=== PATIENT | male | born 1995 | race American Indian/Alaskan Native ===

== ENCOUNTER 2016-09-13 19:47 | Emergency (ER) | payer OTHER ==
[2016-09-13 19:47] VITALS: BMI 19.5
[2016-09-13] MEDS ORDERED: Bacitracin 500 Units/gm Oint Foilpak UD TOP ONE (20:53)
[2016-09-13] MEDS ORDERED: Bacitracin 500 Units/gm Oint Foilpak UD ONE (21:03)
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
[2016-09-13] MEDS ORDERED: Epinephrine /Lidocaine HCL 1:100,000/2% 30 ml INFIL ONE (21:43)
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
[2016-09-14 00:12] VITALS: BP 137/73; PULSE 77; RESP 18; TEMP 98.5; O2SAT 98
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
--- NOTE | 2016-09-16 07:55 | CARD ---
APPROVED REPORT EKG Measurement Heart [id number] HI 128P9 [id number] <Conclusion> Normal sinus rhythm Normal ECG
== END 2016-09-14 00:12 | disposition home or self-care (01) ==
LOC: C.ER 19:47
DX: S01.81XA Laceration without foreign body of other part of head, initial encounter (principal); V18.4XXA Pedal cycle driver injured in noncollision transport accident in traffic accident, initial encounter; Y92.89 Other specified places as the place of occurrence of the external cause

== ENCOUNTER 2016-10-20 17:34 | Observation (INO) | payer OTHER ==
[2016-10-20 17:34] VITALS: BMI 19.5
[2016-10-20] MEDS ORDERED: Sodium Chloride 0.9% 1,000 ML IV ONE (17:54)
[2016-10-20] MEDS ORDERED: Sodium Chloride 0.9% 1,000 ML ONE (18:08)
[2016-10-20 18:12] LABS: BASO # 0.1 K/uL (0.0-0.2); BASO % 1.1 % (0.0-2.0); EOS # 0.1 K/uL (0.0-0.7); EOS % 0.5 % (0.0-4.0); HEMOGLOBIN 17.2 g/dL (12.0-18.0); LYMPH # 1.8 K/uL (1.0-4.3); LYMPH % 16.9 % (20.0-40.0); MEAN CELL VOLUME 87.4 fL (80.0-94.0); MEAN CORPUSCULAR HEMOGLOBIN 29.6 pg (27.0-31.0); MEAN CORPUSCULAR HGB CONC 33.9 g/dL (33.0-37.0); MONO # 0.5 K/uL (0.0-0.8); MONO % 5.1 % (0.0-10.0); NEUT # 8.1 K/uL (1.8-7.0); NEUT % 76.4 % (50.0-75.0); NRBC % 0.1 % (0.0-2.0); RBC 5.82 Mil/uL (4.40-5.90); RED CELL DISTRIBUTION WIDTH 13.1 % (11.5-14.5); WHITE BLOOD COUNT 10.5 K/uL (4.8-10.8)
[2016-10-20 18:27] LABS: URINE AMORPHOUS SEDIMENT RARE /ul (<OCC); URINE BACTERIA OCC (<OCC); URINE BILIRUBIN NEGATIVE (NEGATIVE); URINE BLOOD NEGATIVE (NEGATIVE); URINE CLARITY Hazy (Clear); URINE COLOR Yellow (YELLOW); URINE GLUCOSE (UA) NORMAL (Normal); URINE LEUKOCYTE ESTERASE NEG Leu/uL (Negative); URINE NITRATE NEGATIVE (NEGATIVE); URINE PROTEIN 1+ mg/dL (NEGATIVE); URINE UROBILINOGEN NORMAL mg/dL (0.2-1.0)
--- NOTE | 2016-10-20 18:34 | C.PDOC ---
History Of Present Illness 21 yr old male with history of intractable vomiting, presents to the ER with complaints of nausea and vomiting for the past 2 days. Patient reports he unable to tolerate any PO intake. Denies travel, fever, chest pain, SOB, abdominal pain, weakness or numbness. Time Seen by Provider: 10/20/16 17:50 Chief Complaint (Nursing): Chest Pain History Per: Patient History/Exam Limitations: no limitations Onset/Duration Of Symptoms: Days (2) Current Symptoms Are (Timing): Still Present Past Medical History Reviewed: Historical Data, Nursing Documentation, Vital Signs Vital Signs: Last Vital Signs Temp 98.4 F 10/20/16 17:36 Pulse 62 10/20/16 17:36 Resp 16 10/20/16 17:36 BP 156/100 H 10/20/16 17:36 Pulse Ox 98 10/20/16 18:52 - Medical History PMH: Gastritis, GERD - [facility] Procedures EXCISION OF LEFT LARGE INTESTINE, ENDO, DIAGN (02/27/16) Family History: States: No Known Family Hx - Social History Hx Tobacco Use: Yes (black & milds) Hx Alcohol Use: No Hx Substance Use: Yes - Immunization History Hx Tetanus Toxoid Vaccination: No Hx Influenza Vaccination: No Hx Pneumococcal Vaccination: No Review Of Systems Except As Marked, All Systems Reviewed And Found Negative. Constitutional: Negative for: Fever Cardiovascular: Negative for: Chest Pain Respiratory: Negative for: Shortness of Breath Gastrointestinal: Positive for: Nausea, Vomiting. Negative for: Abdominal Pain Neurological: Negative for: Weakness, Numbness Physical Exam - Physical Exam Appears: Non-toxic, No Acute Distress, Other ((+) Fraile. Thin looking. ) Skin: Warm, Dry Head: Atraumatic, Normacephalic Chest: Symmetrical, No Tenderness Cardiovascular: Rhythm Regular, No Murmur Respiratory: Normal Breath Sounds, No Rales, No Rhonchi, No Stridor, No Wheezing Gastrointestinal/Abdominal: Soft, Tenderness (Diffuse tenderness), No Guarding, No Rebound Extremity: Normal ROM, No Swelling Neurological/Psych: Oriented x3, Normal Speech, Normal Motor ED Course And Treatment - Laboratory Results Result Diagrams: 10/20/16 18:05 10/20/16 18:29 Lab Interpretation: Abnormal (mild hypokalemia, THC +) ECG: Interpreted By Me ECG Rhythm: Sinus Rhythm ECG Interpretation: Normal Rate From EC O2 Sat by Pulse Oximetry: 98 Pulse Ox Interpretation: Normal - Radiology CXR: Interpreted by Me CXR Interpretation: Yes: No Acute Disease - Other Rad X-Ray - Obstructive Series X-Ray: Viewed By Me (normal stool/gas pattern) Reevaluation Time: 18:51 Reassessment Condition: Improved - Physician Consult Information Outcome Of Conversation: 1849: d/w Dr. Wheat- PMD- ok to med/surg obs. Medical Decision Making Medical Decision Making: PLAN: * X-Ray - Obstructive Series * Alcohol Serum * Drug Screen * Troponin * CBC * CMP * Urinalysis * Pepcid IVP * Toradol IVP * Zofran IVP * Sodium Chloride IV * 1899: recurrent intractable vomiting of ? etiology Disposition Doctor Will See Patient In The: Hospital Counseled Patient/Family Regarding: Studies Performed, Diagnosis - Disposition Disposition: HOSPITALIZED Disposition Time: 18:52 Condition: GOOD - Clinical Impression Clinical Impression: Intractable vomiting - Scribe Statement The provider has reviewed the documentation as recorded by the Ariel Lobato Provider Attestation: All medical record entries made by the Ariel were at my direction and personally dictated by me. I have reviewed the chart and agree that the record accurately reflects my personal performance of the history, physical exam, medical decision making, and the department course for this patient. I have also personally directed, reviewed, and agree with the discharge instructions and disposition.
[2016-10-20 18:39] LABS: ALBUMIN 4.5 g/dL (3.5-5.0)
[2016-10-20 18:42] LABS: ALB/GLOB RATIO 1.2 (1.0-2.1); AST/SGOT 20 U/L (17-59); GFR AFRICAN-AMERICAN > 60; GFR NON-AFRICAN AMERICAN > 60
[2016-10-20 18:43] LABS: ALT/SGPT 23 U/L (21-72); BLOOD UREA NITROGEN 11 mg/dL (9-20); CALCIUM 9.7 mg/dl (8.6-10.4); LIPASE 60 U/L (23-300)
[2016-10-20 18:47] LABS: BARBITURATES, UR NEGATIVE (NEGATIVE); BENZODIAZEPINES, UR NEGATIVE (NEGATIVE)
[2016-10-20] MEDS ORDERED: Potassium Chloride 10 mEq ER Tab PO STA (18:49)
[2016-10-20] MEDS ORDERED: Morphine 4 MG/ML VIAL IV STA (18:49)
[2016-10-20 18:51] LABS: OPIATES, UR NEGATIVE (NEGATIVE); PHENCYCLIDINE, UR NEGATIVE (NEGATIVE)
[2016-10-20] MEDS ORDERED: Morphine 4 MG/ML VIAL ONE (19:01)
[2016-10-20] MEDS ORDERED: Potassium Chloride 20 mEq ER Tab PO ONE (19:01)
[2016-10-20] MEDS ORDERED: Dextrose 5%/0.9% NS 1,000 ML IV ONE (19:17)
[2016-10-20] MEDS: Dextrose 5%/0.9% NS 1,000 ML IV SCH (19:23)
--- NOTE | 2016-10-20 21:53 | CP.PCM.HP ---
History of Present Illness - History of Present Illness History of Present Illness: 21 yr old male with history of intractable vomiting, presents to the ER with complaints of nausea and vomiting for the past 2 days. Patient reports he unable to tolerate any PO intake. Denies travel, fever, chest pain, SOB, abdominal pain, weakness or numbness. Present on Admission - Present on Admission Any Indicators Present on Admission: Yes Past Patient History - Past Medical History & Family History Past Medical History?: No - Past Social History Smoking Status: Light Smoker < 10 Cigarettes Daily - MUSCULOSKELETAL/RHEUMATOLOGICAL Hx Falls: No - GASTROINTESTINAL Hx Gastritis: Yes - PSYCHIATRIC Hx Substance Use: Yes - SURGICAL HISTORY Hx Surgeries: No - ANESTHESIA Hx Anesthesia: No Meds Home Medications: Home Medication List Medication Instructions Recorded Confirmed Type Famotidine [Pepcid] 20 mg PO DAILY #15 tab 10/22/16 Rx Ondansetron [Zofran Odt] 4 mg PO Q6 #10 odt 10/22/16 Rx Allergies/Adverse Reactions: Allergies Allergy/AdvReac Type Severity Reaction Status Date / Time No Known Allergies Allergy Verified 10/20/16 17:39 Results - Vital Signs Recent Vital Signs: Last Vital Signs Temp 98.4 F 10/20/16 20:53 Pulse 54 L 10/20/16 20:53 Resp 20 10/20/16 20:53 BP 135/70 10/20/16 20:53 Pulse Ox 98 10/20/16 20:53 - Labs Result Diagrams: 10/21/16 07:17 10/21/16 07:15
[2016-10-21] MEDS ORDERED: Acetaminophen-Codeine 300/30 mg Tab PO PRN (01:21)
[2016-10-21 07:29] LABS: BASO % 0.4 % (0.0-2.0); EOS # 0.1 K/uL (0.0-0.7); EOS % 1.5 % (0.0-4.0); HEMOGLOBIN 15.4 g/dL (12.0-18.0); LYMPH # 3.2 K/uL (1.0-4.3); LYMPH % 42.8 % (20.0-40.0); MEAN CORPUSCULAR HEMOGLOBIN 29.4 pg (27.0-31.0); MEAN CORPUSCULAR HGB CONC 32.9 g/dL (33.0-37.0); MONO # 0.4 K/uL (0.0-0.8); MONO % 5.3 % (0.0-10.0); NEUT # 3.8 K/uL (1.8-7.0); RBC 5.25 Mil/uL (4.40-5.90); WHITE BLOOD COUNT 7.5 K/uL (4.8-10.8)
[2016-10-21 07:39] LABS: ALBUMIN 3.6 g/dL (3.5-5.0)
[2016-10-21 07:41] LABS: AMYLASE 89 U/L (30-110)
[2016-10-21 07:42] LABS: ALB/GLOB RATIO 1.2 (1.0-2.1); ALT/SGPT 16 U/L (21-72); AST/SGOT 17 U/L (17-59); BLOOD UREA NITROGEN 10 mg/dL (9-20); CALCIUM 9.2 mg/dl (8.6-10.4); GFR AFRICAN-AMERICAN > 60; GFR NON-AFRICAN AMERICAN > 60; LIPASE 70 U/L (23-300)
[2016-10-21 07:44] LABS: MEAN CELL VOLUME 89.4 fL (80.0-94.0)
--- NOTE | 2016-10-21 07:44 | RAD ---
Abdomen four views History: Abdominal pain. Comparison: None available. Findings: Lung acevedo are clear. Heart size within normal limits. Small nodular density in the left infrahilar region may represent vessel on end. Mild fecal retention in the colon. Few mildly distended loops of small bowel in the right lower abdomen. Impression: Nonspecific bowel gas pattern with a few mildly distended loops of small bowel in the right steph abdomen.
[2016-10-21] MEDS ORDERED: Pneumococcal 23-Valent Vaccine IM ONE (10:00)
[2016-10-21] MEDS: Pantoprazole 40 mg EC Tab PO SCH (11:12)
[2016-10-21 11:57] VITALS: O2SAT 100
[2016-10-21] MEDS ORDERED: Aluminum Hydroxide/Magnesium Hydroxide Susp (30 mL) PO PRN (14:42)
[2016-10-21] MEDS: Dextrose 5%/0.9% NS 1,000 ML IV SCH (14:59)
--- NOTE | 2016-10-21 21:29 | CARD ---
APPROVED REPORT EKG Measurement Heart [id number] HI 124P5 [id number] <Conclusion> Normal sinus rhythm with sinus arrhythmia Moderate voltage criteria for LVH, may be normal variant Borderline ECG
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
[2016-10-22 01:28] VITALS: RESP 20; TEMP 98.2
[2016-10-22] MEDS: Dextrose 5%/0.9% NS 1,000 ML IV SCH (06:08)
[2016-10-22 09:18] VITALS: BP 136/77; PULSE 53
[2016-10-22] MEDS: Pantoprazole 40 mg EC Tab PO SCH (09:28)
--- NOTE | 2016-10-22 12:51 | CP.PCM.PN ---
Subjective - Date & Time of Evaluation Date of Evaluation: 10/22/16 Time of Evaluation: 12:49 - Subjective Subjective: 21 yr old male seen and examined today, with history of intractable vomiting, presents to the ER with complaints of nausea and vomiting for the past 2 days. Patient reports he unable to tolerate any PO intake. Xray obstructive series- no obstruction, Pt denies chest pain, SOB, abdominal pain, nasuea, vomiting or diarrhea, tolerating PO, Pt cleared for discharge today as per Dr. barry, Rx for Pepcid and Zofran given, Follow up w/PMD, agree, verbalize understanding. Objective - Vital Signs/Intake and Output Vital Signs (last 24 hours): Temp Pulse Resp BP Pulse Ox 98.2 F 53 L 20 136/77 100 10/22/16 09:17 10/22/16 09:17 10/22/16 09:17 10/22/16 09:17 10/22/16 09:17 Intake and Output: 10/22/16 10/22/16 06:59 18:59 Intake Total 800 Balance 800 - Medications Medications: Current Medications Acetaminophen/Codeine Phosphate (Tylenol/Codeine 300 Mg/30 Mg) 2 ea PO Q4 PRN PRN Reason: Pain, moderate (4-7) Last Admin: 10/21/16 06:34 Dose: 2 ea Al Hydrox/Mg Hydrox/Simethicone (Maalox 30 Ml) 30 ml PO Q8 PRN PRN Reason: Indigestion / Heartburn Last Admin: 10/21/16 15:03 Dose: 30 ml Dextrose/Sodium Chloride (Dextrose 5%/0.9% Ns 1000 Ml) 1,000 mls @ 100 mls/hr IV .Q10H DRU Last Admin: 10/22/16 06:08 Dose: 100 mls/hr Morphine Sulfate (Morphine) 2 mg SC Q6H PRN PRN Reason: pain Last Admin: 10/21/16 18:03 Dose: 2 mg Ondansetron HCl (Zofran Inj) 4 mg IVP Q4 PRN PRN Reason: Nausea/Vomiting Last Admin: 10/21/16 07:39 Dose: 4 mg Pantoprazole Sodium (Protonix Ec Tab) 40 mg PO DAILY DRU Last Admin: 10/22/16 09:28 Dose: 40 mg - Labs Labs: 10/21/16 07:17 07/05/17 07:15
--- NOTE | 2016-10-22 14:58 | CP.PCM.DIS ---
Provider - Provider Date of Admission: 10/20/16 18:50 Attending physician: Real Wheat MD Time Spent in preparation of Discharge (in minutes): 55 Hospital Course - Lab Results Lab Results: Most Recent Lab Values WBC 7.5 K/uL (4.8-10.8) 10/21/16 07: RBC 5.25 Mil/uL (4.40-5.90) 10/21/16 07:17 Hgb 15.4 g/dL (12.0-18.0) 10/21/16 07: Hct 47.0 % (35.0-51.0) 10/21/16 07: MCV 89.4 fL (80.0-94.0) D 10/21/16 07: MCH 29.4 pg (27.0-31.0) 10/21/16 07: MCHC 32.9 g/dL (33.0-37.0) L 10/21/16 07: RDW 13.0 % (11.5-14.5) 10/21/16 07: Plt Count 236 K/uL (130-400) 10/21/16 07:17 MPV 7.0 fL (7.2-11.7) L 10/21/16 07:17 Neut % (Auto) 50.0 % (50.0-75.0) 10/21/16 07: Lymph % (Auto) 42.8 % (20.0-40.0) H 10/21/16 07:17 [place] % (Auto) 5.3 % (0.0-10.0) 10/21/16 07:17 Eos % (Auto) 1.5 % (0.0-4.0) 10/21/16 07:17 Baso % (Auto) 0.4 % (0.0-2.0) 10/21/16 07:17 Neut # 3.8 K/uL (1.8-7.0) 10/21/16 07: Lymph # 3.2 K/uL (1.0-4.3) 10/21/16 07:17 Bates # 0.4 K/uL (0.0-0.8) 10/21/16 07:17 Eos # 0.1 K/uL (0.0-0.7) 10/21/16 07:17 Baso # 0.0 K/uL (0.0-0.2) 10/21/16 07:17 Sodium 143 mmol/L (132-148) 10/21/16 07:15 Potassium 4.1 mmol/L (3.6-5.2) 10/21/16 07:15 Chloride 106 mmol/L (98-107) 10/21/16 07:15 Carbon Dioxide 27 mmol/L (22-30) 10/21/16 07:15 Anion Gap 14 (10-20) 10/21/16 07:15 BUN 10 mg/dL (9-20) 10/21/16 07:15 Creatinine 0.9 MG/DL (0.8-1.5) 10/21/16 07:15 Est GFR ( Amer) > 60 10/21/16 07:15 Est GFR (Non-Af Amer) > 60 10/21/16 07:15 Random Glucose 95 mg/dL (75-110) 10/21/16 07:15 Calcium 9.2 mg/dl (8.6-10.4) 10/21/16 07:15 Total Bilirubin 1.1 mg/dL (0.2-1.3) 10/21/16 07:15 AST 17 U/L (17-59) 10/21/16 07:15 ALT 16 U/L (21-72) L D 10/21/16 07:15 Alkaline Phosphatase 55 U/L (38-126) 10/21/16 07:15 Troponin I < 0.0120 ng/mL (0.00-0.120) 10/20/16 18:29 Total Protein 6.6 g/dL (6.3-8.3) 10/21/16 07:15 Albumin 3.6 g/dL (3.5-5.0) 10/21/16 07:15 Globulin 3.0 gm/dL (2.2-3.9) 10/21/16 07:15 Albumin/Globulin Ratio 1.2 (1.0-2.1) 10/21/16 07:15 Amylase 89 U/L (30-110) 10/21/16 07:15 Lipase 70 U/L (23-300) 10/21/16 07:15 Urine Color Yellow (YELLOW) 10/20/16 18:17 Urine Clarity Hazy (Clear) 10/20/16 18:17 Urine pH 8.0 (5.0-8.0) 10/20/16 18:17 Ur Specific [place] 1.031 (1.003-1.030) H 10/20/16 18:17 Urine Protein 1+ mg/dL (NEGATIVE) H 10/20/16 18:17 Urine Glucose (UA) Normal mg/dL (Normal) 10/20/16 18:17 Urine Ketones 1+ mg/dL (NEGATIVE) H 10/20/16 18:17 Urine Blood Negative (NEGATIVE) 10/20/16 18:17 Urine Nitrate Negative (NEGATIVE) 10/20/16 18:17 Urine Bilirubin Negative (NEGATIVE) 10/20/16 18:17 Urine Urobilinogen Normal mg/dL (0.2-1.0) 10/20/16 18:17 Ur Leukocyte Esterase Neg [place]/uL (Negative) 10/20/16 18:17 Urine WBC (Auto) 3 /hpf (0-5) 10/20/16 18:17 Urine RBC (Auto) 5 /hpf (0-3) H 10/20/16 18:17 Amorphous Sediment Rare /ul (<OCC) H 10/20/16 18:17 Urine Bacteria Occ (<OCC) H 10/20/16 18:17 Urine Opiates Screen Negative (NEGATIVE) 10/20/16 18:17 Urine Methadone Screen Negative (NEGATIVE) 10/20/16 18:17 Ur Barbiturates Screen Negative (NEGATIVE) 10/20/16 18:17 Ur Phencyclidine Scrn Negative (NEGATIVE) 10/20/16 18:17 Ur Amphetamines Screen Negative (NEGATIVE) 10/20/16 18:17 U Benzodiazepines Scrn Negative (NEGATIVE) 10/20/16 18:17 U Oth Cocaine Metabols Negative (NEGATIVE) 10/20/16 18:17 U Cannabinoids Screen Positive (NEGATIVE) 10/20/16 18:17 Alcohol, Quantitative < 10 mg/dl (0-10) 10/20/16 18:29 - Hospital Course Hospital Course: Pt cleared for discharge today , Rx for Pepcid and Zofran given, Follow up w me in 1 week, agree, verbalize understanding. Discharge Exam - Head Exam Head Exam: ATRAUMATIC, NORMAL INSPECTION, NORMOCEPHALIC Discharge Plan - Discharge Medications Prescriptions: Famotidine [Pepcid] 20 mg PO DAILY #15 tab Ondansetron [Zofran Odt] 4 mg PO Q6 #10 odt - Follow Up Plan Condition: GOOD Disposition: HOME/ ROUTINE Instructions: Famotidine (By mouth), Ondansetron (By mouth), Acute Nausea and Vomiting (DC) Additional Instructions: FOLLOW UP WITH DR WHEAT IN 1-2 DAYS CONTINUE MEDICATIONS PER MED REC RETURN TO ED IF ANY WORSENING SYMPTOMS Referrals: Real Wheat MD [Staff Provider] -
== END 2016-10-22 14:34 | disposition home or self-care (01) ==
LOC: C.ER 17:34 → C.9E 18:50 → C.6T 19:38
PROVIDERS: ADMIT Internal Medicine; ATTEND Internal Medicine
DX: G89.29 Other chronic pain (principal); R07.9 Chest pain, unspecified; K21.9 Gastro-esophageal reflux disease without esophagitis; F17.210 Nicotine dependence, cigarettes, uncomplicated; R10.9 Unspecified abdominal pain; Z91.81 History of falling; R11.10 Vomiting, unspecified; F12.10 Cannabis abuse, uncomplicated
CPT/HCPCS: 36415; 74022; 80053; 80320; 80324; 80345; 80346; 80349; 80353; 80358; 80361; 81001; 82150; 83690; 83992; 84484; 85025; 93005; 96360; 96374; 99285; C9113; G0378; J1885; J2270; J2405; J7040; J7042

== ENCOUNTER 2016-10-23 10:10 | Emergency (ER) | payer OTHER ==
[2016-10-23 10:10] VITALS: BMI 19.5
--- NOTE | 2016-10-23 10:46 | C.PDOC ---
History Of Present Illness 21 y/o male presents to ED with c/o epigastric abdominal pain, radiating to the chest, for 4 days. Patient reports he was recently discharged from hospital. States he has been taking prescribed medications without relief, notes he has been unable to tolerate PO, including medications. Patient describes pain as burning, and "shooting". Denies fever, chills, SOB, urinary symptoms, diarrhea. Last BM was today, normal. Time Seen by Provider: 10/23/16 10:30 Chief Complaint (Nursing): Chest Pain History Per: Patient History/Exam Limitations: no limitations Onset/Duration Of Symptoms: Days Current Symptoms Are (Timing): Still Present Quality: Burning, "Pain" Recent travel outside of the [place]: No Past Medical History Reviewed: Historical Data, Nursing Documentation, Vital Signs Vital Signs: Last Vital Signs Temp 98.2 F 10/23/16 12:58 Pulse 71 10/23/16 12:58 Resp 17 10/23/16 12:58 BP 107/64 10/23/16 12:58 Pulse Ox 98 10/23/16 12:58 - Medical History PMH: No Chronic Diseases, Gastritis, GERD - [facility] Procedures EXCISION OF LEFT LARGE INTESTINE, ENDO, DIAGN (02/27/16) Family History: States: Unknown Family Hx - Social History Hx Tobacco Use: Yes (black & milds) Hx Alcohol Use: No Hx Substance Use: Yes - Immunization History Hx Tetanus Toxoid Vaccination: No Hx Influenza Vaccination: No Hx Pneumococcal Vaccination: No Review Of Systems ENT: Negative for: Throat Pain Cardiovascular: Negative for: Chest Pain, Palpitations Respiratory: Negative for: Cough, Shortness of Breath Gastrointestinal: Positive for: Nausea, Vomiting, Abdominal Pain Genitourinary: Negative for: Dysuria Skin: Negative for: Rash Neurological: Negative for: Headache, Dizziness Physical Exam - Physical Exam Appears: Non-toxic, No Acute Distress Skin: Warm, Dry Head: Atraumatic, Normacephalic Eye(s): bilateral: Normal Inspection, EOMI Nose: Normal Oral Mucosa: Moist Neck: Normal ROM Chest: Symmetrical Cardiovascular: Rhythm Regular, No Murmur Respiratory: Normal Breath Sounds, No Rales, No Rhonchi, No Wheezing Gastrointestinal/Abdominal: Soft, Tenderness (epigastric ), No Distention, No Guarding, No Rebound Back: No CVA Tenderness Extremity: Normal ROM, Capillary Refill (< 2 sec.) Neurological/Psych: Oriented x3, Normal Speech Gait: Steady ED Course And Treatment - Laboratory Results Result Diagrams: 10/23/16 10:58 10/23/16 10:58 Lab Interpretation: No Acute Changes ECG: Interpreted By Me ECG Rhythm: Sinus Bradycardia ECG Interpretation: No Acute Changes Interpretation Of ECG: Premature atrial complexes Rate From EC (bpm) O2 Sat by Pulse Oximetry: 100 (RA) Pulse Ox Interpretation: Normal Medical Decision Making Medical Decision Making: Impression: abdominal pain Plan: * Labs, Pepcid, Reglan, IV fluids. Reassess: Labs reviewed and unremarkable no acute changes from prior visit. Patient reevaluated and reports feeling better abdominal pain has improved. Abdomen remains soft and patient was able to tolerate PO. Advise patient on dietary changes and provide Rx. Instruct to follow up with GI if symptoms persist. Disposition Counseled Patient/Family Regarding: Diagnosis, Need For Followup, Rx Given - Disposition Referrals: Real Wheat MD [Staff Provider] - Disposition: HOME/ ROUTINE Disposition Time: 12:26 Condition: STABLE Additional Instructions: Your labs were normal Take medication 1-2 times per day for abdominal pain Follow up with your primary medical doctor in 2-5 days for further evaluation. Return to the emergency department at any time if symptoms persist or worsen. Prescriptions: Ranitidine HCl 150 mg PO DAILY #30 tablet Instructions: Gastritis (DC) - POA Present On Arrival: None - Clinical Impression Clinical Impression: Epigastric abdominal pain, Gastritis - PA / COMPUTER SCIENTIST / Resident Statement MD/DO has reviewed & agrees with the documentation as recorded. - Scribe Statement The provider has reviewed the documentation as recorded by the Ariel Crews All medical record entries made by the Ariel were at my direction and personally dictated by me. I have reviewed the chart and agree that the record accurately reflects my personal performance of the history, physical exam, medical decision making, and the department course for this patient. I have also personally directed, reviewed, and agree with the discharge instructions and disposition.
[2016-10-23 11:12] LABS: BASO # 0.1 K/uL (0.0-0.2); BASO % 1.5 % (0.0-2.0); EOS # 0.1 K/uL (0.0-0.7); EOS % 0.8 % (0.0-4.0); HEMOGLOBIN 16.7 g/dL (12.0-18.0); LYMPH # 1.3 K/uL (1.0-4.3); LYMPH % 17.6 % (20.0-40.0); MEAN CORPUSCULAR HEMOGLOBIN 29.3 pg (27.0-31.0); MEAN CORPUSCULAR HGB CONC 33.7 g/dL (33.0-37.0); MEAN PLATELET VOLUME 7.2 fL (7.2-11.7); MONO # 0.4 K/uL (0.0-0.8); MONO % 5.4 % (0.0-10.0); NEUT # 5.4 K/uL (1.8-7.0); NEUT % 74.7 % (50.0-75.0); NRBC % 0.1 % (0.0-2.0); RBC 5.7 Mil/uL (4.40-5.90); RED CELL DISTRIBUTION WIDTH 12.6 % (11.5-14.5); WHITE BLOOD COUNT 7.2 K/uL (4.8-10.8)
[2016-10-23 11:16] LABS: MEAN CELL VOLUME 87.1 fL (80.0-94.0)
[2016-10-23 11:22] LABS: ALBUMIN 4.6 g/dL (3.5-5.0)
[2016-10-23 11:25] LABS: AST/SGOT 26 U/L (17-59); GFR AFRICAN-AMERICAN > 60; GFR NON-AFRICAN AMERICAN > 60
[2016-10-23 11:26] LABS: ALB/GLOB RATIO 1.3 (1.0-2.1); ALT/SGPT 30 U/L (21-72); BLOOD UREA NITROGEN 11 mg/dL (9-20); CALCIUM 10.1 mg/dl (8.6-10.4); LIPASE 93 U/L (23-300)
[2016-10-23 12:27] LABS: URINE BILIRUBIN NEGATIVE (NEGATIVE); URINE BLOOD NEGATIVE (NEGATIVE); URINE CLARITY Clear (Clear); URINE COLOR Yellow (YELLOW); URINE GLUCOSE (UA) NORMAL (Normal); URINE LEUKOCYTE ESTERASE NEG Leu/uL (Negative); URINE NITRATE NEGATIVE (NEGATIVE); URINE PROTEIN NEGATIVE (NEGATIVE); URINE UROBILINOGEN NORMAL mg/dL (0.2-1.0)
[2016-10-23 12:59] VITALS: BP 107/64; PULSE 71; RESP 17; TEMP 98.2
[2016-10-23 13:28] VITALS: O2SAT 100
--- NOTE | 2016-10-26 10:56 | CARD ---
APPROVED REPORT EKG Measurement Heart [id number] [id number] <Conclusion> Sinus bradycardia with premature atrial complexes Otherwise normal ECG
== END 2016-10-23 12:58 | disposition home or self-care (01) ==
LOC: C.ER 10:10
DX: K29.70 Gastritis, unspecified, without bleeding (principal)
CPT/HCPCS: 80053; 80320; 81001; 83690; 84484; 85025; 93005; 96374; 96375; 99285; J2765

== ENCOUNTER 2016-11-04 12:50 | Inpatient (IN) | payer OTHER ==
[2016-11-04 12:50] VITALS: BMI 19.5
[2016-11-04] MEDS ORDERED: Belladonna-Phenobarbital PO STA (13:22)
[2016-11-04] MEDS ORDERED: Lidocaine 2% Viscous 100 ml PO STA (13:22)
[2016-11-04] MEDS ORDERED: Aluminum Hydroxide/Magnesium Hydroxide Susp (30 mL) PO STA (13:22)
[2016-11-04] MEDS ORDERED: Sodium Chloride 0.9% 1,000 ML IV ONE (13:22)
[2016-11-04] MEDS ORDERED: Aluminum Hydroxide/Magnesium Hydroxide Susp (30 mL) ONE (13:33)
[2016-11-04] MEDS ORDERED: Belladonna-Phenobarbital ONE (13:33)
[2016-11-04] MEDS ORDERED: Sodium Chloride 0.9% 500 ML IV ONE (14:54)
--- NOTE | 2016-11-04 14:57 | C.PDOC ---
History Of Present Illness 21 y/o male hx gastritis presents to ED with complaints of epigastric pain 8/10 , nausea and vomiting. Pt with multiple episodes to ED for same. Pt states he can't sleep, crying in anguish, followed by Jarret. Pt recently discharged from [facility] for same, at that time had unremarkable colonoscopy, needs endoscopy. Denies headache, fever, chills, diarrhea or any other complaints. Time Seen by Provider: 11/04/16 13:09 Chief Complaint (Nursing): Chest Pain History Per: Patient History/Exam Limitations: no limitations Onset/Duration Of Symptoms: Days Current Symptoms Are (Timing): Still Present Severity: Moderate Pain Scale Rating Of: 8 Quality: "Pain" Alleviating Factors: None Recent travel outside of the [place]: No Past Medical History Reviewed: Historical Data, Nursing Documentation, Vital Signs Vital Signs: Last Vital Signs Temp 98.6 F 11/04/16 13:03 Pulse 95 H 11/04/16 13:03 Resp 20 11/04/16 13:03 BP 114/70 11/04/16 13:03 Pulse Ox 99 11/04/16 14:57 - Medical History PMH: Gastritis, GERD - [facility] Procedures EXCISION OF LEFT LARGE INTESTINE, ENDO, DIAGN (02/27/16) Family History: States: Unknown Family Hx - Social History Hx Tobacco Use: Yes (black & milds) Hx Alcohol Use: No Hx Substance Use: Yes (Marijuna use 4 days ago) - Immunization History Hx Tetanus Toxoid Vaccination: No Hx Influenza Vaccination: No Hx Pneumococcal Vaccination: No Review Of Systems Except As Marked, All Systems Reviewed And Found Negative. Constitutional: Negative for: Fever, Chills Cardiovascular: Negative for: Chest Pain Gastrointestinal: Positive for: Nausea, Vomiting, Abdominal Pain. Negative for : Diarrhea Neurological: Negative for: Headache Physical Exam - Physical Exam Appears: Non-toxic, No Acute Distress Skin: Warm, Dry, No Rash Head: Atraumatic, Normacephalic Oral Mucosa: Moist Neck: Normal, Normal ROM, Supple Chest: Symmetrical Cardiovascular: Rhythm Regular, No Murmur Respiratory: Normal Breath Sounds, No Rales, No Rhonchi, No Wheezing Gastrointestinal/Abdominal: Soft, Tenderness (epigastric), No Guarding, No Rebound Extremity: Normal ROM Extremity: Bilateral: Atraumatic Neurological/Psych: Oriented x3, Normal Speech ED Course And Treatment ECG: Interpreted By Me, Viewed By Me ECG Rhythm: Sinus Rhythm Rate From EC (BPM) O2 Sat by Pulse Oximetry: 99 (room air) Pulse Ox Interpretation: Normal Progress Note: Plan: IV fluids, GI cocktail, morphine, EKG. Discussed case with Dr Wheat, will admit patien to OBS Medical Decision Making Medical Decision Making: Spoke with Dr. Wheat, states patient bouncing from ED to ED, will bring in PObs for evaluation. Disposition Discussed With Dr.: Real Wheat Doctor Will See Patient In The: Hospital Counseled Patient/Family Regarding: Studies Performed, Diagnosis - Disposition Disposition: HOSPITALIZED Disposition Time: 14:56 Condition: GUARDED - Clinical Impression Clinical Impression: Gastritis - Scribe Statement The provider has reviewed the documentation as recorded by the Milliibmike Rodriguez Provider Attestation: All medical record entries made by the Scribe were at my direction and personally dictated by me. I have reviewed the chart and agree that the record accurately reflects my personal performance of the history, physical exam, medical decision making, and the department course for this patient. I have also personally directed, reviewed, and agree with the discharge instructions and disposition. Decision To Admit - Pt Status Changed To: Hospital Disposition Of: Observation - . Bed Request Type: Regular Admitting Physician: Real Wheat Patient Diagnosis: Gastritis
[2016-11-04] MEDS ORDERED: Sodium Chloride 0.9% 1,000 ML ONE (16:00)
[2016-11-04 16:16] LABS: BASO % 0.5 % (0.0-2.0); EOS # 0.1 K/uL (0.0-0.7); EOS % 1.1 % (0.0-4.0); HEMOGLOBIN 14.8 g/dL (12.0-18.0); LYMPH # 2.5 K/uL (1.0-4.3); LYMPH % 27.5 % (20.0-40.0); MEAN CELL VOLUME 88.8 fL (80.0-94.0); MEAN CORPUSCULAR HEMOGLOBIN 29.3 pg (27.0-31.0); MEAN PLATELET VOLUME 6.4 fL (7.2-11.7); MONO # 0.5 K/uL (0.0-0.8); MONO % 5.1 % (0.0-10.0); NEUT % 65.8 % (50.0-75.0); NRBC % 0.1 % (0.0-2.0); RBC 5.03 Mil/uL (4.40-5.90); RED CELL DISTRIBUTION WIDTH 12.8 % (11.5-14.5); WHITE BLOOD COUNT 9.1 K/uL (4.8-10.8)
[2016-11-04 16:24] LABS: ALBUMIN 3.8 g/dL (3.5-5.0)
[2016-11-04 16:26] LABS: GFR AFRICAN-AMERICAN > 60; GFR NON-AFRICAN AMERICAN > 60
[2016-11-04 16:27] LABS: ALB/GLOB RATIO 1.4 (1.0-2.1); ALT/SGPT 28 U/L (21-72); AST/SGOT 18 U/L (17-59); BLOOD UREA NITROGEN 9 mg/dL (9-20); CALCIUM 9.1 mg/dl (8.6-10.4); LIPASE 42 U/L (23-300)
[2016-11-04] MEDS: Potassium Ch 20mEq in D5-1/2NS 1,000 ML IV SCH (16:45)
--- NOTE | 2016-11-04 23:33 | CP.PCM.HP ---
History of Present Illness - History of Present Illness History of Present Illness: CC: nausea/Vomitting HPI: 21 y/o male hx gastritis and cyclical vomitting syndrome presents to ED with complaints of epigastric pain 8/10, nausea and vomiting. Pt with multiple episodes to ED for same.pt is unable to eat food due to perssitant vomitting, Pt states he can't sleep, crying in anguish. Pt recently discharged from [facility] for same, at that time had unremarkable colonoscopy, needs endoscopy. Denies headache, fever, chills, diarrhea or any other complaints. Present on Admission - Present on Admission Any Indicators Present on Admission: Yes Review of Systems - Review of Systems Systems not reviewed;Unavailable: Acuity of Condition - Constitutional Constitutional: Anorexia, Fatigue, Lethargy, Malaise, Weakness - EENT Eyes: absent: As Per HPI, Blind Spots, Blurred Vision, Change in Vision, Decreased Night Vision, Diplopia, Discharge, Dry Eye, Exophthalmos, Floaters, Irritation, Itchy Eyes, Loss of Peripheral Vision, Pain, Photophobia, Requires Corrective Lenses, Sees Flashes, Spots in Vision, Tunnel Vision, Other Visual Disturbances, Loss of Vision, Other Ears: absent: As Per HPI, Decreased Hearing, Ear Discharge, Ear Pain, Tinnitus, Abnormal Hearing, Disequilibrium, Dizziness, Other Nose/Mouth/Throat: absent: As Per HPI, Epistaxis, Nasal Congestion, Nasal Discharge, Nasal Obstruction, Nasal Trauma, Nose Pain, Post Nasal Drip, Sinus Pain, Sinus Pressure, Bleeding Gums, Change in Voice, Dental Pain, Dry Mouth, Dysphagia, Halitosis, Hoarsness, Lip Swelling, Mouth Lesions, Mouth Pain, Odynophagia, Sore Throat, Throat Swelling, Tongue Swelling, Facial Pain, Neck Pain, Neck Mass, Other - Cardiovascular Cardiovascular: absent: As Per HPI, Acrocyanosis, Chest Pain, Chest Pain at Rest , Chest Pain with Activity, Claudication, Diaphoresis, Dyspnea, Dyspnea on Exertion, Edema, Irregular Heart Rhythm, Pain Radiating to Arm/Neck/Jaw, Leg Edema, Leg Ulcers, Lightheadedness, Orthopnea, Palpitations, Paroxysmal Nocturnal Dyspnea, Pedal Edema, Radiating Pain, Rapid Heart Rate, Slow Heart Rate, Syncope, Other - Respiratory Respiratory: absent: As Per HPI, Cough, Dyspnea, Hemoptysis, Dyspnea on Exertion , Wheezing, Snoring, Stridor, Pain on Inspiration, Chest Congestion, Excessive Mucous Production, Change in Mucous Color, Pain with Coughing, Other - Gastrointestinal Gastrointestinal: Abdominal Pain, Nausea, Vomiting - Genitourinary Genitourinary: absent: As Per HPI, Change in Urinary Stream, Difficulty Urinating, Dysuria, Flank Pain, Hematuria, Pyuria, Nocturia, Urinary Incontinence, Urinary Frequency, Urinary Hesitance, Urinary Urgency, Voiding Freq/Small Amts, Freq UTI, Hx Renal/Bladder Calculi, Hx /Renal Surgery, Bladder Distension, Other Past Patient History - Infectious Disease Hx of Infectious Diseases: None - Past Medical History & Family History Past Medical History?: Yes - Past Social History Smoking Status: Light Smoker < 10 Cigarettes Daily - CARDIAC Other/Comment: chest pains - MUSCULOSKELETAL/RHEUMATOLOGICAL Hx Falls: No - GASTROINTESTINAL Hx Gastritis: Yes - PSYCHIATRIC Hx Substance Use: Yes - SURGICAL HISTORY Hx Surgeries: No - ANESTHESIA Hx Anesthesia: No Meds Allergies/Adverse Reactions: Allergies Allergy/AdvReac Type Severity Reaction Status Date / Time No Known Allergies Allergy Verified 11/04/16 13:05 Physical Exam - Constitutional Appears: No Acute Distress - Head Exam Head Exam: ATRAUMATIC, NORMAL INSPECTION, NORMOCEPHALIC - Eye Exam Eye Exam: EOMI, Normal appearance, PERRL Pupil Exam: NORMAL ACCOMODATION, PERRL - ENT Exam ENT Exam: Mucous Membranes Moist, Normal Exam - Respiratory Exam Respiratory Exam: Clear to Auscultation Bilateral - Cardiovascular Exam Cardiovascular Exam: REGULAR RHYTHM, +S1, +S2 - GI/Abdominal Exam GI & Abdominal Exam: Tenderness - Rectal Exam Rectal Exam: Deferred - Neurological Exam Neurological exam: Alert, CN II-XII Intact, Normal Gait, Oriented x3, Reflexes Normal - Psychiatric Exam Psychiatric exam: Anxious, Depressed - Skin Skin Exam: Dry, Intact, Normal Color, Warm Results - Vital Signs Recent Vital Signs: Last Vital Signs Temp 98.3 F 11/04/16 17:03 Pulse 52 L 11/04/16 17:03 Resp 20 11/04/16 17:03 BP 125/74 11/04/16 17:03 Pulse Ox 100 11/04/16 17:03 - Labs Result Diagrams: 11/04/16 16:12 11/04/16 16:12 Labs: Laboratory Results - last 24 hr 11/04/16 11/04/16 16:12 16:12 WBC 9.1 RBC 5.03 Hgb 14.8 Hct 44.7 MCV 88.8 MCH 29.3 MCHC 33.0 RDW 12.8 Plt Count 259 MPV 6.4 L Neut % (Auto) 65.8 Lymph % (Auto) 27.5 [place] % (Auto) 5.1 Eos % (Auto) 1.1 Baso % (Auto) 0.5 Neut # 6.0 Lymph # 2.5 [place] # 0.5 Eos # 0.1 Baso # 0.0 Sodium 147 Potassium 4.1 Chloride 101 Carbon Dioxide 30 Anion Gap 20 BUN 9 Creatinine 0.9 Est GFR ( Amer) > 60 Est GFR (Non-Af Amer) > 60 Random Glucose 84 Calcium 9.1 Total Bilirubin 0.9 AST 18 ALT 28 Alkaline Phosphatase 54 Total Protein 6.6 Albumin 3.8 Globulin 2.8 Albumin/Globulin Ratio 1.4 Lipase 42 Assessment & Plan (1) Gastritis Status: Acute (2) Abdominal discomfort Status: Acute (3) Intractable vomiting Status: Acute
[2016-11-05] MEDS: Potassium Ch 20mEq in D5-1/2NS 1,000 ML IV SCH ×4 (04:15→22:30)
[2016-11-05 06:36] LABS: HEMOGLOBIN 14.8 g/dL (12.0-18.0); MEAN CORPUSCULAR HEMOGLOBIN 29.9 pg (27.0-31.0); MEAN CORPUSCULAR HGB CONC 33.6 g/dL (33.0-37.0); MEAN PLATELET VOLUME 6.7 fL (7.2-11.7); RBC 4.96 Mil/uL (4.40-5.90); RED CELL DISTRIBUTION WIDTH 12.8 % (11.5-14.5); WHITE BLOOD COUNT 6.2 K/uL (4.8-10.8)
[2016-11-05 07:24] LABS: ALBUMIN 3.5 g/dL (3.5-5.0)
[2016-11-05 07:27] LABS: ALB/GLOB RATIO 1.3 (1.0-2.1); AST/SGOT 22 U/L (17-59); BLOOD UREA NITROGEN 8 mg/dL (9-20); GFR AFRICAN-AMERICAN > 60; GFR NON-AFRICAN AMERICAN > 60
[2016-11-05 07:28] LABS: ALT/SGPT 27 U/L (21-72)
--- NOTE | 2016-11-05 14:42 | CARD ---
APPROVED REPORT EKG Measurement Heart [id number] [id number] <Conclusion> Sinus bradycardia Otherwise normal ECG
--- NOTE | 2016-11-05 21:23 | CP.PCM.PN ---
Subjective - Date & Time of Evaluation Date of Evaluation: 11/05/16 Time of Evaluation: 20:30 - Subjective Subjective: Pt seen and examined, still complaining of rethching, nausea, vomitting, pt will be followed up by GI and possible endoscopy as per GI Objective - Vital Signs/Intake and Output Vital Signs (last 24 hours): Temp Pulse Resp BP Pulse Ox 98.7 F 56 L 20 137/76 99 11/05/16 15:44 11/05/16 15:44 11/05/16 15:44 11/05/16 15:44 11/05/16 15:44 Intake and Output: 11/05/16 11/06/16 18:59 06:59 Intake Total 1600 Balance 1600 - Medications Medications: Current Medications Famotidine (Pepcid) 20 mg IVP Q12 DRU Last Admin: 11/05/16 21:19 Dose: 20 mg Potassium Chloride/Dextrose/Sod Cl (Potassium Chl 20 Meq In D5-1/2ns) 1,000 mls @ 100 mls/hr IV .Q10H DRU Last Admin: 11/05/16 17:16 Dose: 100 mls/hr Morphine Sulfate (Morphine) 2 mg IVP Q4 PRN PRN Reason: Pain, severe (8-10) Last Admin: 11/05/16 19:47 Dose: 2 mg Ondansetron HCl (Zofran Inj) 4 mg IVP Q4 PRN PRN Reason: Nausea/Vomiting - Constitutional Appears: No Acute Distress - Head Exam Head Exam: ATRAUMATIC, NORMAL INSPECTION, NORMOCEPHALIC - Eye Exam Eye Exam: EOMI, Normal appearance, PERRL Pupil Exam: NORMAL ACCOMODATION, PERRL - Respiratory Exam Respiratory Exam: Clear to Ausculation Bilateral, NORMAL BREATHING PATTERN - Cardiovascular Exam Cardiovascular Exam: REGULAR RHYTHM, +S1, +S2. absent: Murmur - GI/Abdominal Exam GI & Abdominal Exam: Tenderness Additional comments: epigastric tenderness Assessment and Plan (1) Gastritis Status: Acute (2) Abdominal discomfort Status: Acute (3) Intractable vomiting Status: Acute
[2016-11-06] MEDS: Potassium Ch 20mEq in D5-1/2NS 1,000 ML IV SCH ×2 (04:58→09:21)
[2016-11-06 07:47] VITALS: O2SAT 100
[2016-11-06] MEDS ORDERED: Propofol 10 mg/ml Inj (20 ML) ONE (10:11)
[2016-11-06] MEDS ORDERED: Midazolam 2 MG/2 ML VIAL ONE (10:12)
[2016-11-06 10:29] VITALS: TEMP 97.3
[2016-11-06 10:43] VITALS: RESP 14
[2016-11-06 10:55] VITALS: BP 132/97; PULSE 66
--- NOTE | 2016-11-06 12:53 | US ---
HISTORY: ABDOM. PAIN / N/V. COMPARISON: None. TECHNIQUE: Sonographic evaluation of the abdomen. FINDINGS: LIVER: Measures 13.0 cm. Normal echogenicity of the liver parenchyma. No mass. No intrahepatic bile duct dilatation. Normal hepatopetal portal venous flow. GALLBLADDER: Unremarkable. No gallstones. COMMON BILE DUCT: Measures 2 mm. No stones. No dilatation. PANCREAS: Unremarkable as visualized. No mass. No ductal dilatation. RIGHT KIDNEY: Measures 10.6cm. Normal echogenicity. No calculus, mass, or hydronephrosis. LEFT KIDNEY: Measures 10.0cm. Normal echogenicity. No calculus, mass, or hydronephrosis. SPLEEN: Normal in size and contour. No mass. AORTA: No aneurysmal dilatation. IVC: Unremarkable. OTHER FINDINGS: None. IMPRESSION: Unremarkable abdominal sonogram.
--- NOTE | 2016-11-06 14:57 | CP.PCM.PN ---
Subjective - Date & Time of Evaluation Date of Evaluation: 11/06/16 Time of Evaluation: 14:57 - Subjective Subjective: Alert, orientedx3, no acute distress. Objective - Vital Signs/Intake and Output Vital Signs (last 24 hours): Temp Pulse Resp BP Pulse Ox 97.3 F L 66 14 132/97 H 100 11/06/16 10:25 11/06/16 10:55 11/06/16 10:55 11/06/16 10:55 11/06/16 10:55 Intake and Output: 11/06/16 11/06/16 06:59 18:59 Intake Total 1600 100 Balance 1600 100 - Medications Medications: Current Medications Famotidine (Pepcid) 20 mg IVP Q12 DRU Last Admin: 11/06/16 09:21 Dose: 20 mg Potassium Chloride/Dextrose/Sod Cl (Potassium Chl 20 Meq In D5-1/2ns) 1,000 mls @ 100 mls/hr IV .Q10H DRU Last Admin: 11/06/16 09:21 Dose: Not Given Morphine Sulfate (Morphine) 2 mg IVP Q4 PRN PRN Reason: Pain, severe (8-10) Last Admin: 11/06/16 01:34 Dose: 2 mg Ondansetron HCl (Zofran Inj) 4 mg IVP Q4 PRN PRN Reason: Nausea/Vomiting Sucralfate (Carafate Tab) 1 gm PO ACBD [facility] Assessment and Plan - Assessment and Plan (Free Text) Assessment: Patient is seen and examined. Alert, orientedx3, denies abdominal pain or vomiting. Cleared by DR Hawkins, d/w DR De La Paz , plan for discharge home today. Advised to avoid citrus and fatty foods. To follow uo with DR Wheat in 1 week.
--- NOTE | 2016-11-06 20:57 | CON ---
DATE: 11/05/2016 LOCATION: 369. From Dr. Michael Hawkins and Dr. Jarret Noble. I was called for a GI consultation by the admitting medical team. The patient is seen and fully examined on 11/05/2016 at the request by the admitting *------*. The entire chart is reviewed including, but not limited to most recent lab and radiologist's results, current and previous medication list, current and previous medical events, allergies to medication list as well as all the available current and previous medical records. HISTORY OF PRESENT ILLNESS: This is a 21-year-old male, who was admitted to the hospital with complaint of severe abdominal pain, nausea, and vomiting with generalized weakness and malaise with severe insomnia due to above, who had been in [facility] recently for colonoscopy. No reported active bleeding, chest pain or palpitation. PAST MEDICAL HISTORY: Including mainly peptic ulcer disease. FAMILY HISTORY: Unknown. SOCIAL HISTORY: Positive for cigarette smoking, but marijuana use 4 days ago. No alcohol intake. CURRENT MEDICATION: Medication lists were reviewed post admission. ALLERGIES TO MEDICATION: Unknown. After being admitted to the hospital, initial blood workup showed normal CBC with normal SMA-18 but low total protein, 6.2. PHYSICAL EXAMINATION: GENERAL: A 21-year-old male appeared to be awake, alert, and oriented. VITAL SIGNS: Afebrile with pulse of 58, respiratory rate 20 to 22, blood pressure 130/72. HEENT: Showed pale, dry mucoid membrane. Nonicteric sclerae. LUNGS: Few scattered crepitation. Decreased air entry at bases. HEART: Positive S1 and S2. ABDOMEN: Soft with mild distention and severe midepigastric as well as mid abdominal line tenderness. No mass or organomegaly. No rebound tenderness or guarding. Rectal examination, patient refused. EXTREMITIES: Without significant clubbing, cyanosis, or edema. NEUROLOGIC EXAM: No neurologic deficit, sensory, or motor. It has to be mentioned that at the time of the admission, patient had normal lipase level of 42 with normal liver function test. IMPRESSION: 1. Re-exacerbation of peptic ulcer disease. 2. Rule out gastric versus duodenal ulcer. SUGGESTIONS: 1. I agree with your management. 2. Reglan IV. 3. Proton pump inhibitor, IV peritoneal line. 4. Endoscopic evaluation of the upper GI tract. 5. Further recommendation to follow and abdominal ultrasound to be scheduled. Carlos Elizalde MD
== END 2016-11-06 16:20 | disposition home or self-care (01) | DRG 183 ==
LOC: C.ER 12:50 → C.9E 15:23 → C.3T 16:03 → OBSVTOIN 11-05 14:59
PROVIDERS: ADMIT Internal Medicine; ATTEND Internal Medicine
PROC: 0DB68ZX Excision of Stomach, Via Natural or Artificial Opening Endoscopic, Diagnostic (ICD-10-PCS; principal; 2016-11-06 10:15)
DX: K29.00 Acute gastritis without bleeding (principal); K27.3 Acute peptic ulcer, site unspecified, without hemorrhage or perforation; K29.80 Duodenitis without bleeding; K21.9 Gastro-esophageal reflux disease without esophagitis; F17.210 Nicotine dependence, cigarettes, uncomplicated; F12.90 Cannabis use, unspecified, uncomplicated; G47.00 Insomnia, unspecified; R11.10 Vomiting, unspecified

== ENCOUNTER 2016-11-16 18:55 | Observation (INO) | payer OTHER ==
[2016-11-16 18:55] VITALS: BMI 19.5
[2016-11-16] MEDS ORDERED: Sodium Chloride 0.9% 1,000 ML IV ONE (20:20)
--- NOTE | 2016-11-16 20:20 | C.PDOC ---
History Of Present Illness 21 y/o male with Hx of Gastritis and Cyclical vomiting syndrome presents to ED with complaints of recurrent epigastric pain rated 8/10 with associated nausea and vomiting starting today. Patient has multiple previous visits to ED for similar symptoms and had a negative previous colonoscopy. No other complaints at this time. CO RECUR GEN ABD PAIN, [place] SINCE TODAY. hx gastritis and cyclical vomiting syndrome presents to ED with complaints of epigastric pain 8/10, nausea and vomiting. Pt with multiple episodes to ED for same. NEG PRIOR COLONOSCOPY. NO OTHER ASSOC SX EXAM MILD DIST NONTOXIC ABD +EPIG TEND SOFT NO R/G REMAINDER NEG Chief Complaint (Nursing): Chest Pain History Per: Patient History/Exam Limitations: no limitations Onset/Duration Of Symptoms: Days Current Symptoms Are (Timing): Still Present Past Medical History Reviewed: Historical Data, Nursing Documentation, Vital Signs Vital Signs: Last Vital Signs Temp 97.8 F 11/16/16 19:00 Pulse 88 11/16/16 19:00 Resp 20 11/16/16 19:00 BP 126/83 11/16/16 19:00 Pulse Ox 96 11/16/16 20:20 - Medical History PMH: Gastritis, GERD - [facility] Procedures EXCISION OF LEFT LARGE INTESTINE, ENDO, DIAGN (02/27/16) EXCISION OF STOMACH, ENDO, DIAGN (11/05/16) Family History: States: Unknown Family Hx - Social History Hx Tobacco Use: Yes (black & milds) Hx Alcohol Use: No Hx Substance Use: Yes - Immunization History Hx Tetanus Toxoid Vaccination: No Hx Influenza Vaccination: No Hx Pneumococcal Vaccination: No Review Of Systems Except As Marked, All Systems Reviewed And Found Negative. Constitutional: Negative for: Fever, Chills Cardiovascular: Negative for: Chest Pain Gastrointestinal: Positive for: Nausea, Vomiting, Abdominal Pain. Negative for : Diarrhea Musculoskeletal: Negative for: Back Pain Skin: Negative for: Rash Physical Exam - Physical Exam Appears: Non-toxic, Other (In Mild distress) Skin: Normal Color, Warm Oral Mucosa: Moist Cardiovascular: Rhythm Regular Respiratory: Normal Breath Sounds, No Rales, No Rhonchi, No Wheezing Gastrointestinal/Abdominal: Soft, Tenderness (Epigastric Tenderness), No Guarding, No Rebound Extremity: Normal ROM, Capillary Refill (<2 seconds) Neurological/Psych: Oriented x3, Normal Speech ED Course And Treatment O2 Sat by Pulse Oximetry: 96 (RA) Pulse Ox Interpretation: Normal - Physician Consult Information Time Consulting Physician Contacted: 20:20 Physician Contacted: Real Wheat Outcome Of Conversation: AWARE OF ER FINDINGS, ADMIT OBS Disposition Counseled Patient/Family Regarding: Diagnosis, Need For Followup - Disposition Disposition: HOSPITALIZED Disposition Time: 20:20 Condition: STABLE Forms: [facility] (Arabic) - POA Present On Arrival: None - Clinical Impression Clinical Impression: Epigastric abdominal pain, Vomiting - Scribe Statement The provider has reviewed the documentation as recorded by the Milliibmike Marquez All medical record entries made by the Milliibmike were at my direction and personally dictated by me. I have reviewed the chart and agree that the record accurately reflects my personal performance of the history, physical exam, medical decision making, and the department course for this patient. I have also personally directed, reviewed, and agree with the discharge instructions and disposition. Decision To Admit - Pt Status Changed To: Hospital Disposition Of: Observation - . Bed Request Type: Regular Admitting Physician: Real Wheat Patient Diagnosis: Epigastric abdominal pain, Vomiting
[2016-11-16 20:58] LABS: BASO # 0.3 K/uL (0.0-0.2); BASO % 2.3 % (0.0-2.0); EOS # 0.1 K/uL (0.0-0.7); EOS % 0.4 % (0.0-4.0); HEMATOCRIT 48.4 % (35.0-51.0); LYMPH % 6.7 % (20.0-40.0); MEAN CELL VOLUME 86.4 fL (80.0-94.0); MEAN CORPUSCULAR HEMOGLOBIN 29.9 pg (27.0-31.0); MEAN CORPUSCULAR HGB CONC 34.6 g/dL (33.0-37.0); MEAN PLATELET VOLUME 6.9 fL (7.2-11.7); MONO # 0.6 K/uL (0.0-0.8); MONO % 4.1 % (0.0-10.0); PLATELET COUNT 344 K/uL (130-400); RED CELL DISTRIBUTION WIDTH 12.5 % (11.5-14.5); WHITE BLOOD COUNT 14.5 K/uL (4.8-10.8)
[2016-11-16] MEDS ORDERED: Morphine 4 MG/ML VIAL ONE (21:03)
[2016-11-16] MEDS ORDERED: Sodium Chloride 0.9% 1,000 ML ONE (21:03)
[2016-11-16 21:07] LABS: CHLORIDE 96 mmol/L (98-107); POTASSIUM 3.1 mmol/L (3.6-5.2); SODIUM 139 mmol/L (132-148)
[2016-11-16 21:09] LABS: ALB/GLOB RATIO 1.4 (1.0-2.1); AST/SGOT 38 U/L (17-59); CARBON DIOXIDE 21 mmol/L (22-30); GFR AFRICAN-AMERICAN > 60
[2016-11-16 21:10] LABS: ALKALINE PHOSPHATASE 82 U/L (38-126); ALT/SGPT 54 U/L (21-72); BLOOD UREA NITROGEN 8 mg/dL (9-20); CALCIUM 9.8 mg/dl (8.6-10.4); GLUCOSE,RANDOM 106 mg/dL (75-110)
[2016-11-16 22:11] LABS: NEUTROPHIL 87 % (50-75); TOTAL CELLS COUNTED 100
[2016-11-16 22:12] LABS: LARGE PLATELETS PRESENT
--- NOTE | 2016-11-16 23:35 | CP.PCM.HP ---
History of Present Illness - History of Present Illness History of Present Illness: 21 y/o male with Hx of Gastritis and Cyclical vomiting syndrome presents to ED with complaints of recurrent epigastric pain rated 8/10 with associated nausea and vomiting starting today. Patient has multiple previous visits to ED for similar symptoms and had a negative previous colonoscopy. No other complaints at this time. CO RECUR GEN ABD PAIN, [place] SINCE TODAY. hx gastritis and cyclical vomiting syndrome presents to ED with complaints of epigastric pain 8/10, nausea and vomiting. Pt with multiple episodes to ED for same. NEG PRIOR COLONOSCOPY. NO OTHER ASSOC SX EXAM MILD DIST NONTOXIC ABD +EPIG TEND SOFT NO R/G REMAINDER NEG Present on Admission - Present on Admission Any Indicators Present on Admission: Yes Past Patient History - Infectious Disease Hx of Infectious Diseases: None - Past Medical History & Family History Past Medical History?: Yes - Past Social History Smoking Status: Light Smoker < 10 Cigarettes Daily - CARDIAC Other/Comment: chest pains - MUSCULOSKELETAL/RHEUMATOLOGICAL Hx Falls: No - GASTROINTESTINAL Hx Gastritis: Yes - PSYCHIATRIC Hx Substance Use: Yes - SURGICAL HISTORY Hx Surgeries: No - ANESTHESIA Hx Anesthesia: No Meds Allergies/Adverse Reactions: Allergies Allergy/AdvReac Type Severity Reaction Status Date / Time No Known Allergies Allergy Verified 11/16/16 19:00 Physical Exam - Constitutional Appears: No Acute Distress - Eye Exam Eye Exam: EOMI, Normal appearance, PERRL Pupil Exam: NORMAL ACCOMODATION, PERRL - Respiratory Exam Respiratory Exam: Clear to Auscultation Bilateral, NORMAL BREATHING PATTERN - Cardiovascular Exam Cardiovascular Exam: REGULAR RHYTHM - GI/Abdominal Exam GI & Abdominal Exam: Tenderness - Rectal Exam Rectal Exam: Deferred Results - Vital Signs Recent Vital Signs: Last Vital Signs Temp 97.8 F 11/16/16 19:00 Pulse 70 11/16/16 22:24 Resp 20 11/16/16 22:24 BP 118/61 11/16/16 22:24 Pulse Ox 100 11/16/16 22:24 - Labs Result Diagrams: 11/18/16 06:59 11/18/16 06:59 Labs: Laboratory Results - last 24 hr 11/16/16 11/16/16 20:54 20:54 WBC 14.5 H D RBC 5.60 Hgb 16.8 D Hct 48.4 MCV 86.4 D MCH 29.9 MCHC 34.6 RDW 12.5 Plt Count 344 D MPV 6.9 L Neut % (Auto) 86.5 H Lymph % (Auto) 6.7 L [place] % (Auto) 4.1 Eos % (Auto) 0.4 Baso % (Auto) 2.3 H Neut # 12.5 H Lymph # 1.0 [place] # 0.6 Eos # 0.1 Baso # 0.3 H Neutrophils % (Manual) 87 H Lymphocytes % (Manual) 9 L Monocytes % (Manual) 4 Platelet Estimate Normal Large Platelets Present Macrocytosis (manual) Slight Sodium 139 Potassium 3.1 L Chloride 96 L Carbon Dioxide 21 L Anion Gap 25 H BUN 8 L Creatinine 0.8 Est GFR ( Amer) > 60 Est GFR (Non-Af Amer) > 60 Random Glucose 106 Calcium 9.8 Total Bilirubin 1.0 AST 38 ALT 54 Alkaline Phosphatase 82 Total Protein 8.0 Albumin 4.6 Globulin 3.4 Albumin/Globulin Ratio 1.4 Lipase 56 Assessment & Plan (1) Epigastric abdominal pain Status: Acute (2) Vomiting Status: Acute (3) Abdominal pain Status: Acute (4) Colitis Status: Acute
[2016-11-17] MEDS: Lactated Ringer's 1,000 ML IV SCH ×4 (00:01→18:04)
--- NOTE | 2016-11-17 16:49 | US ---
HISTORY: Vomiting, epigastric pain COMPARISON: None. TECHNIQUE: Grayscale imaging was performed. FINDINGS: LIVER: Measures 13.4 cm. Normal echogenicity of the liver parenchyma. No mass. No intrahepatic bile duct dilatation. GALLBLADDER: Unremarkable. No gallstones. COMMON BILE DUCT: Measures 5.0 mm. No stones. No dilatation. PANCREAS: Unremarkable as visualized. No mass. No ductal dilatation. RIGHT KIDNEY: Measures 9.7cm. Normal echogenicity. No calculus, mass, or hydronephrosis. LEFT KIDNEY: Measures 10.2cm. Normal echogenicity. No calculus, mass, or hydronephrosis. SPLEEN: Normal in size and contour. No mass. AORTA: No aneurysmal dilatation. IVC: Unremarkable. OTHER FINDINGS: None. IMPRESSION: Normal examination.
--- NOTE | 2016-11-17 19:01 | CARD ---
APPROVED REPORT EKG Measurement Heart [id number] <Conclusion> Normal sinus rhythm Normal ECG
[2016-11-17 19:55] LABS: AMYLASE 102 U/L (30-110)
[2016-11-18] MEDS ORDERED: Morphine 4 MG/ML VIAL IV ONE (01:16)
[2016-11-18] MEDS: Lactated Ringer's 1,000 ML IV SCH ×4 (04:23→17:24)
[2016-11-18 07:24] LABS: HEMATOCRIT 45.2 % (35.0-51.0); MEAN CELL VOLUME 87.9 fL (80.0-94.0); MEAN CORPUSCULAR HEMOGLOBIN 29.9 pg (27.0-31.0); MEAN CORPUSCULAR HGB CONC 34.1 g/dL (33.0-37.0); RED CELL DISTRIBUTION WIDTH 12.9 % (11.5-14.5); WHITE BLOOD COUNT 7.4 K/uL (4.8-10.8)
[2016-11-18 07:54] LABS: CHLORIDE 97 mmol/L (98-107); SODIUM 139 mmol/L (132-148)
[2016-11-18 07:57] LABS: GFR AFRICAN-AMERICAN > 60
[2016-11-18 07:58] LABS: BLOOD UREA NITROGEN 10 mg/dL (9-20); CALCIUM 8.6 mg/dl (8.6-10.4); CARBON DIOXIDE 26 mmol/L (22-30); GLUCOSE,RANDOM 69 mg/dL (75-110)
--- NOTE | 2016-11-18 08:15 | CP.PCM.PN ---
Subjective - Date & Time of Evaluation Date of Evaluation: 11/17/16 Time of Evaluation: 19:40 - Subjective Subjective: PT SEEN AND EXAMINED, C/O NAUSEA/ VOMITTING, GENERALIZED WEAKNESS CANNOT TOLERATE FOOD, NO FEVER, CHILLS RIGORS Objective - Vital Signs/Intake and Output Vital Signs (last 24 hours): Temp Pulse Resp BP Pulse Ox 98.4 F 75 20 116/70 98 11/18/16 00:00 11/18/16 00:00 11/18/16 00:00 11/18/16 00:00 11/18/16 00:00 Intake and Output: 11/18/16 11/18/16 06:59 18:59 Intake Total 1920 Balance 1920 - Medications Medications: Current Medications Dicyclomine HCl (Bentyl) 10 mg IM Q6 PRN PRN Reason: pain Last Admin: 11/17/16 18:07 Dose: 10 mg Lactated Ringer's (Lactated Ringer's) 1,000 mls @ 100 mls/hr IV .Q10H [facility] Last Admin: 11/18/16 05:31 Dose: 100 mls/hr Ondansetron HCl (Zofran Inj) 4 mg IVP Q4 PRN PRN Reason: Nausea/Vomiting Pantoprazole Sodium (Protonix Inj) 40 mg IVP DAILY [facility] Last Admin: 11/17/16 09:52 Dose: 40 mg - Labs Labs: 11/18/16 06:59 11/18/16 06:59 - Constitutional Appears: No Acute Distress - Head Exam Head Exam: ATRAUMATIC, NORMAL INSPECTION, NORMOCEPHALIC - Eye Exam Eye Exam: EOMI, Normal appearance, PERRL Pupil Exam: NORMAL ACCOMODATION, PERRL - GI/Abdominal Exam GI & Abdominal Exam: Soft, Tenderness, Normal Bowel Sounds Assessment and Plan (1) Epigastric abdominal pain Status: Acute (2) Vomiting Assessment & Plan: IV PROTONBIX ZOFRAN Status: Acute
--- NOTE | 2016-11-18 11:11 | CP.PCM.PN ---
Subjective - Date & Time of Evaluation Date of Evaluation: 11/18/16 Time of Evaluation: 20:00 - Subjective Subjective: S/P EGD RESULTS PENDING, NO FEVER, NO SOB Objective - Vital Signs/Intake and Output Vital Signs (last 24 hours): Temp Pulse Resp BP Pulse Ox 98.4 F 75 20 116/70 98 11/18/16 00:00 11/18/16 00:00 11/18/16 00:00 11/18/16 00:00 11/18/16 00:00 Intake and Output: 11/18/16 11/18/16 06:59 18:59 Intake Total 1920 Balance 1920 - Medications Medications: Current Medications Dicyclomine HCl (Bentyl) 10 mg IM Q6 PRN PRN Reason: pain Last Admin: 11/17/16 18:07 Dose: 10 mg Lactated Ringer's (Lactated Ringer's) 1,000 mls @ 100 mls/hr IV .Q10H [facility] Last Admin: 11/18/16 05:31 Dose: 100 mls/hr Ondansetron HCl (Zofran Inj) 4 mg IVP Q4 PRN PRN Reason: Nausea/Vomiting Pantoprazole Sodium (Protonix Inj) 40 mg IVP DAILY [facility] Last Admin: 11/18/16 09:54 Dose: 40 mg - Labs Labs: 11/18/16 06:59 11/18/16 06:59 - Constitutional Appears: Non-toxic, No Acute Distress - Head Exam Head Exam: ATRAUMATIC, NORMAL INSPECTION, NORMOCEPHALIC - Eye Exam Eye Exam: EOMI, Normal appearance Pupil Exam: NORMAL ACCOMODATION - ENT Exam ENT Exam: Normal Exam, Normal Oropharynx, TM's Normal Bilaterally - GI/Abdominal Exam GI & Abdominal Exam: Soft, Normal Bowel Sounds Assessment and Plan (1) Epigastric abdominal pain Status: Acute (2) Vomiting Status: Acute
[2016-11-18] MEDS: Belladonna-Phenobarbital PO SCH ×2 (14:44→17:23)
--- NOTE | 2016-11-18 17:44 | PN ---
DATE: LOCATION: Room 360, bed B. SUBJECTIVE: This is a 21-year-old male seen and examined in rounds who with a period of dyspepsia vomiting this morning. The patient was seen for GI consultation on 11/17/2016 as requested by the admitting medical team. Case was discussed at length with the staff as well as the patient's mother in detail this morning. The entire chart is reviewed including but not limited to the most recent lab and radiologic study results, current and previous medication list, current and previous medical events, and his CBC reported to be normal this morning with lower blood glucose level of 69. Lipase and amylase level were reported to be normal as well as abdominal ultrasound ordered by myself yesterday. PHYSICAL EXAMINATION: GENERAL: A 21-year-old male awake, alert and oriented. VITAL SIGNS: Afebrile with pulse of 76, respiratory rate 20-22 and blood pressure 124/72 HEENT: Showed pale, dry mucous membrane. Nonicteric sclerae. LUNGS: Few scattered crepitation. Decreased air entry at bases HEART: Positive S1 and S2. ABDOMEN: Soft with mild generalized tenderness with mild midepigastric tenderness and slight distention. No masses or organomegaly. No rebound, tenderness or guarding. EXTREMITIES: Without edema, clubbing or cyanosis. NEUROLOGIC: No neurological deficits reported. IMPRESSION: Exacerbation of peptic ulcer disease, rule out gastric versus duodenal ulcer. SUGGESTION: 1. Agree with your plan. 2. Proton pump inhibitors. 3. Carafate liquid 10 mL t.i.d. 4. Endoscopic evaluation of the upper GI tract at a.m. 5. Further recommendations to follow. Carlos Elizalde MD
[2016-11-19] MEDS ORDERED: Morphine 4 MG/ML VIAL IV ONE (03:45)
[2016-11-19] MEDS: Lactated Ringer's 1,000 ML IV SCH ×3 (03:56→10:00)
[2016-11-19] MEDS: Belladonna-Phenobarbital PO SCH (09:54)
[2016-11-19] MEDS ORDERED: Propofol 10 mg/ml Inj (20 ML) ONE ×2 (13:30→13:39)
[2016-11-19] MEDS ORDERED: Lactated Ringer's 1,000 ML IV ONE (13:30)
[2016-11-19] MEDS ORDERED: Lidocaine Hydrochloride 5 ML INJ ONE (13:30)
[2016-11-19] MEDS ORDERED: Midazolam 2 MG/2 ML VIAL ONE (13:39)
[2016-11-19] MEDS ORDERED: Lactated Ringer's 500 ML IV ONE (13:55)
[2016-11-19 14:28] VITALS: O2SAT 100
--- NOTE | 2016-11-19 15:50 | CP.PCM.PN ---
Subjective - Date & Time of Evaluation Date of Evaluation: 11/19/16 Time of Evaluation: 10:45 - Subjective Subjective: Pt seen an d examined today , abdominal pain improved, denies any N/V/D NPO for EGD today Objective - Vital Signs/Intake and Output Vital Signs (last 24 hours): Temp Pulse Resp BP Pulse Ox 97.8 F 55 L 18 110/56 L 100 11/19/16 13:55 11/19/16 14:25 11/19/16 14:25 11/19/16 14:25 11/19/16 14:25 Intake and Output: 11/19/16 11/19/16 06:59 18:59 Intake Total 1600 620 Balance 1600 620 - Medications Medications: Current Medications Belladonna/Phenobarbital () 1 tab PO BID [facility] Last Admin: 11/19/16 09:54 Dose: 1 tab Dicyclomine HCl (Bentyl) 20 mg PO BID [facility] Last Admin: 11/19/16 09:54 Dose: 20 mg Lactated Ringer's (Lactated Ringer's) 1,000 mls @ 100 mls/hr IV .Q10H [facility] Last Admin: 11/19/16 10:00 Dose: Not Given Metoclopramide HCl (Reglan) 5 mg IVP Q6 DRU Pantoprazole Sodium (Protonix Inj) 40 mg IVP DAILY [facility] Last Admin: 11/19/16 09:54 Dose: 40 mg Sucralfate (Carafate Tab) 1 gm PO [facility] DRU - Labs Labs: 11/18/16 06:59 11/18/16 06:59 Assessment and Plan - Assessment and Plan (Free Text) Assessment: A/P 21 yr old male with hx of gastritis admitted for abdominal pain, / vomiting a febrile labs- WNL s/p EGD today - gastritis( see full report for details) Patient tolerating liquid diet after EGD d/W Dr. Hawkins, cleared for discharge from GI standpoint and f/u with PMD D/W with Dr. Wheat, stable for discharge home today and f/u with Dr. Wheat office in 1 week Discharge plan discussed with patient and son at bedside , who understands and agrees with plan patient instructed to returns to ED if symptoms returns
[2016-11-19 16:12] VITALS: BP 121/68; PULSE 52; RESP 20; TEMP 98.2
--- NOTE | 2016-11-19 21:31 | CP.PCM.DIS ---
Provider - Provider Date of Admission: 11/16/16 20:21 Attending physician: Real Wheat MD Time Spent in preparation of Discharge (in minutes): 30 Diagnosis - Discharge Diagnosis (1) Epigastric abdominal pain Status: Acute (2) Vomiting Status: Acute Hospital Course - Lab Results Lab Results: Most Recent Lab Values WBC 7.4 K/uL (4.8-10.8) 11/18/16 06:59 RBC 5.14 Mil/uL (4.40-5.90) 11/18/16 06:59 Hgb 15.4 g/dL (12.0-18.0) 11/18/16 06:59 Hct 45.2 % (35.0-51.0) 11/18/16 06:59 MCV 87.9 fL (80.0-94.0) 11/18/16 06:59 MCH 29.9 pg (27.0-31.0) 11/18/16 06:59 MCHC 34.1 g/dL (33.0-37.0) 11/18/16 06:59 RDW 12.9 % (11.5-14.5) 11/18/16 06:59 Plt Count 256 K/uL (130-400) 11/18/16 06:59 MPV 7.0 fL (7.2-11.7) L 11/18/16 06:59 Neut % (Auto) 86.5 % (50.0-75.0) H 11/16/16 20:54 Lymph % (Auto) 6.7 % (20.0-40.0) L 11/16/16 20:54 [place] % (Auto) 4.1 % (0.0-10.0) 11/16/16 20:54 Eos % (Auto) 0.4 % (0.0-4.0) 11/16/16 20:54 Baso % (Auto) 2.3 % (0.0-2.0) H 11/16/16 20:54 Neut # 12.5 K/uL (1.8-7.0) H 11/16/16 20:54 Lymph # 1.0 K/uL (1.0-4.3) 11/16/16 20:54 [place] # 0.6 K/uL (0.0-0.8) 11/16/16 20:54 Eos # 0.1 K/uL (0.0-0.7) 11/16/16 20:54 Baso # 0.3 K/uL (0.0-0.2) H 11/16/16 20:54 Neutrophils % (Manual) 87 % (50-75) H 11/16/16 20:54 Lymphocytes % (Manual) 9 % (20-40) L 11/16/16 20:54 Monocytes % (Manual) 4 % (0-10) 11/16/16 20:54 Platelet Estimate Normal (NORMAL) 11/16/16 20:54 Large Platelets Present 11/16/16 20:54 Macrocytosis (manual) Slight 11/16/16 20:54 Sodium 139 mmol/L (132-148) 11/18/16 06:59 Potassium 4.0 mmol/L (3.6-5.2) 11/18/16 06:59 Chloride 97 mmol/L (98-107) L 11/18/16 06:59 Carbon Dioxide 26 mmol/L (22-30) 11/18/16 06:59 Anion Gap 20 (10-20) 11/18/16 06:59 BUN 10 mg/dL (9-20) 11/18/16 06:59 Creatinine 0.8 MG/DL (0.8-1.5) 11/18/16 06:59 Est GFR ( Amer) > 60 11/18/16 06:59 Est GFR (Non-Af Amer) > 60 11/18/16 06:59 Random Glucose 69 mg/dL (75-110) L 11/18/16 06:59 Calcium 8.6 mg/dl (8.6-10.4) 11/18/16 06:59 Total Bilirubin 1.0 mg/dL (0.2-1.3) 11/16/16 20:54 AST 38 U/L (17-59) 11/16/16 20:54 ALT 54 U/L (21-72) 11/16/16 20:54 Alkaline Phosphatase 82 U/L (38-126) 11/16/16 20:54 Total Protein 8.0 g/dL (6.3-8.3) 11/16/16 20:54 Albumin 4.6 g/dL (3.5-5.0) 11/16/16 20:54 Globulin 3.4 gm/dL (2.2-3.9) 11/16/16 20:54 Albumin/Globulin Ratio 1.4 (1.0-2.1) 11/16/16 20:54 Amylase 102 U/L (30-110) 11/17/16 19:37 Lipase 57 U/L (23-300) 11/17/16 19:37 - Hospital Course Hospital Course: ADMITTED WITH NAUSEA, VOMITING ABDOMINAL PAIN, WEAKNESS, DEHYDRATED, NO FEVER, NO SOB, NO CHEST PAIN Discharge Exam - Head Exam Head Exam: ATRAUMATIC, NORMAL INSPECTION, NORMOCEPHALIC - Eye Exam Eye Exam: EOMI, Normal appearance, PERRL Pupil Exam: NORMAL ACCOMODATION - ENT Exam ENT Exam: Mucous Membranes Moist, Normal Exam, TM's Normal Bilaterally - Neck Exam Neck exam: Normal Inspection - Respiratory Exam Respiratory Exam: NORMAL BREATHING PATTERN - Cardiovascular Exam Cardiovascular Exam: REGULAR RHYTHM, +S1, +S2 - GI/Abdominal Exam GI & Abdominal Exam: Hyperactive Bowel Sounds - Exam Exam: NORMAL INSPECTION - Extremities Exam Extremities exam: normal capillary refill, pedal pulses present - Psychiatric Exam Psychiatric exam: Normal Affect, Normal Mood - Skin Skin Exam: Intact Discharge Plan - Discharge Medications Prescriptions: Dicyclomine [Bentyl] 20 mg PO BID #10 tab Sucralfate [Carafate] 1 gm PO ACHS 30 Days Pantoprazole [Protonix] 40 mg PO DAILY #15 ect Ondansetron [Zofran Odt] 4 mg PO Q8 PRN #10 odt PRN Reason: Nausea/Vomiting - Follow Up Plan Condition: STABLE Disposition: HOME/ ROUTINE Instructions: Sucralfate (By mouth), Dicyclomine (By mouth), Ondansetron (By injection), Pantoprazole (By mouth), Acute Nausea and Vomiting (DC) Additional Instructions: f/u with Dr. Wheat office in 1 week continue medication as per DR. Wheat Referrals: Real Wheat MD [Staff Provider] -
--- NOTE | 2016-11-20 07:37 | CON ---
DATE: 11/17/[address] Elizalde and Dr. Jarret Noble. HISTORY OF PRESENT ILLNESS: I was called for a GI consultation by the admitting medical team. The patient is seen and fully examined in the presence of his mother and the nursing staff in the floor on 11/17/2016. Entire chart is reviewed including, but not limited to the most recent lab and the radiologic study results, current and previous medication list, and current and previous medical events, allergy to medication list as well as all the available current and previous medical records. This is a 21-year-old male who was admitted to the hospital through the emergency room with recurrent episodes of severe crampy abdominal pain, nausea and vomiting, and dyspepsia, also random abdominal distention. The patient also reported change of bowel movement habits and apparently he had colonoscopy before, details of which is unclear and also reported to be normal as per the patient and his mother's statement. No chest pain or palpitations. No reported chills or fevers. PAST MEDICAL HISTORY: Includes peptic ulcer disease. FAMILY HISTORY: Unrelated to specific GI disorder. SOCIAL HISTORY: Positive for cigarette smoking, but the patient denied any alcohol intake, but positive for substance abuse. LABORATORY DATA: initial blood workup reported to be within normal limits as per the primary report. PHYSICAL EXAMINATION: GENERAL: A 21-year-old male, awake, alert, oriented with stable vital signs. VITAL SIGNS: Afebrile with pulse of 84, respiratory rate 20 to 22, blood pressure 130/86. HEENT: Showed pale, dry oral mucous membrane, nonicteric sclerae. NECK: No lymphadenitis or lymphadenopathy. HEART: Positive S1, S2. LUNGS: Few scattered crepitations. Breathing sounds are present bilaterally. ABDOMEN: Soft with significant tenderness in the mid epigastric area. No mass or organomegaly. No rebound tenderness or guarding. RECTAL: The patient refused. EXTREMITIES: Without significant edema, clubbing, or cyanosis. NEUROLOGIC: No neurological deficits, sensory or motor. IMPRESSION: 1. Exacerbation of peptic ulcer disease, to rule out gastric versus duodenal ulcer. 2. To rule out biliary tree disorder. SUGGESTION: 1. Agree with your plan. 2. Proton pump inhibitor. 3. Upper endoscopy. If it is negative, then the patient will need small bowel followthrough for further evaluation of the small bowel. 4. Serum lipase and amylase level. 5. Reglan IV. 6. Psychiatric evaluation if the above workup collar turner to be negative. Further recommendation to follow and Carafate liquid 10 mL p.o. 3 times a day as well as 10 mg one twice a day to be added to the current regimen. Thank you for letting me participate in your the patient's case management. Carlos Elizalde MD
== END 2016-11-19 17:03 | disposition home or self-care (01) ==
LOC: C.ER 18:55 → C.9E 20:21 → C.3T 22:03
PROVIDERS: ADMIT Internal Medicine; ATTEND Internal Medicine
DX: K29.70 Gastritis, unspecified, without bleeding (principal); K29.80 Duodenitis without bleeding
CPT/HCPCS: 36415; 43239; 76700; 80048; 80053; 82150; 83690; 85025; 85027; 88305; 93005; 96361; 96372; 96374; 96375; 96376; 99285; C9113; G0378; J0500; J2270; J2405; J3480; J7040; J7120

== ENCOUNTER 2016-12-09 09:27 | Emergency (ER) | payer OTHER ==
[2016-12-09 09:27] VITALS: BMI 19.5
[2016-12-09] MEDS ORDERED: Sodium Chloride 0.9% 1,000 ML IV ONE (10:03)
--- NOTE | 2016-12-09 10:07 | C.PDOC ---
History Of Present Illness 21 y/o patient arrives in the ED with complaints of abdominal pain associated with vomiting. Patient reports several vomiting episodes prior to arrival. The patient notes past history of gastritis and endoscopy. The patient denies any symptoms of dizziness, headaches, fevers, chills, chest pain, SOB, or other associated symptoms. Time Seen by Provider: 12/09/16 09:37 Chief Complaint (Nursing): Abdominal Pain History/Exam Limitations: no limitations Onset/Duration Of Symptoms: Hrs Current Symptoms Are (Timing): Still Present Severity: Mild Location Of Pain/Discomfort: Epigastric Quality Of Discomfort: "Pain". denies: Sharp, Aching Associated Symptoms: Vomiting. denies: Fever, Chills, Nausea Exacerbating Factors: denies: Cough Past Medical History Reviewed: Historical Data, Nursing Documentation, Vital Signs Vital Signs: Last Vital Signs Temp 98.1 F 12/09/16 12:05 Pulse 82 12/09/16 12:05 Resp 18 12/09/16 12:05 BP 134/88 12/09/16 12:05 Pulse Ox 96 12/09/16 12:05 - Medical History PMH: Gastritis, GERD Denies: Atrial Fibrillation, Cardia Arrhythmia, CHF, Crohn's Disease, Diverticulitis, Gall Bladder Disease, HTN, Hypercholesterolemia, Mitral Valve Prolapse, Pancreatitis, Peripheral Edema, Chronic Kidney Disease Surgical History: No Surg Hx, Endoscopy Denies: Pacemaker - [facility] Procedures EXCISION OF LEFT LARGE INTESTINE, ENDO, DIAGN (02/27/16) EXCISION OF STOMACH, ENDO, DIAGN (11/05/16) Family History: States: Unknown Family Hx - Social History Hx Tobacco Use: Yes (black & milds) Hx Alcohol Use: No Hx Substance Use: Yes - Immunization History Hx Tetanus Toxoid Vaccination: No Hx Influenza Vaccination: No Hx Pneumococcal Vaccination: No Review Of Systems Except As Marked, All Systems Reviewed And Found Negative. Constitutional: Negative for: Fever, Chills, Sweats Cardiovascular: Negative for: Chest Pain, Light Headedness Respiratory: Negative for: Cough, Shortness of Breath Gastrointestinal: Positive for: Vomiting, Abdominal Pain. Negative for: Nausea , Diarrhea Genitourinary: Negative for: Dysuria Skin: Negative for: Rash Physical Exam - Physical Exam Appears: Non-toxic, No Acute Distress Skin: Normal Color, Warm, Dry Head: Normacephalic Oral Mucosa: Moist Throat: Normal, No Erythema, No Exudate Chest: Symmetrical, No Ecchymosis Cardiovascular: Rhythm Regular Respiratory: Normal Breath Sounds, No Rales, No Rhonchi, No Wheezing Gastrointestinal/Abdominal: Soft, Tenderness (mild, epigastric), No Guarding, No Rebound Extremity: Normal ROM, Capillary Refill (< 2 sec.) Neurological/Psych: Oriented x3, Normal Speech, Normal Cognition ED Course And Treatment - Laboratory Results Result Diagrams: 12/09/16 11:14 12/09/16 11:14 Lab Interpretation: Normal O2 Sat by Pulse Oximetry: 100 (RA) Pulse Ox Interpretation: Normal Progress Note: Pepcid, Reglan, IV fluids, and labs ordered. treated with maalox PO. On re-evaluation abdomen soft, non tender Reassessment Condition: Improved Disposition Counseled Patient/Family Regarding: Studies Performed, Diagnosis, Need For Followup, Rx Given - Disposition Referrals: Carlos Hawkins [Staff Provider] - Disposition: HOME/ ROUTINE Disposition Time: 12:40 Condition: STABLE Additional Instructions: Follow up with GI for further evaluation Prescriptions: Sucralfate [Carafate Oral Susp] 1 gm PO ACHS #120 [facility] [place] Instructions: Acute Nausea and Vomiting (ED) Forms: [facility] (Mongolian) - POA Present On Arrival: None - Clinical Impression Clinical Impression: Abdominal pain, Vomiting, Gastritis - PA / PIN CLEANER / Resident Statement MD/DO has reviewed & agrees with the documentation as recorded. - Scribe Statement The provider has reviewed the documentation as recorded by the Milliibmike Candelario All medical record entries made by the Milliibmike were at my direction and personally dictated by me. I have reviewed the chart and agree that the record accurately reflects my personal performance of the history, physical exam, medical decision making, and the department course for this patient. I have also personally directed, reviewed, and agree with the discharge instructions and disposition.
[2016-12-09] MEDS ORDERED: Sodium Chloride 0.9% 1,000 ML ONE (10:17)
[2016-12-09 10:29] LABS: RBC URINE 1 /hpf (0-3); URINE BILIRUBIN NEGATIVE (NEGATIVE); URINE BLOOD NEGATIVE (NEGATIVE); URINE COLOR Amber (YELLOW); URINE GLUCOSE (UA) NORMAL (Normal); URINE KETONE 1+ mg/dL (NEGATIVE); URINE LEUKOCYTE ESTERASE NEG Leu/uL (Negative); URINE PROTEIN 1+ mg/dL (NEGATIVE); WBC URINE 1 /hpf (0-5)
[2016-12-09 11:18] LABS: BASO % 0.5 % (0.0-2.0); EOS % 0.2 % (0.0-4.0); HEMATOCRIT 48.5 % (35.0-51.0); LYMPH # 1.5 K/uL (1.0-4.3); LYMPH % 15.3 % (20.0-40.0); MEAN CELL VOLUME 87.1 fL (80.0-94.0); MEAN CORPUSCULAR HEMOGLOBIN 29.3 pg (27.0-31.0); MEAN CORPUSCULAR HGB CONC 33.6 g/dL (33.0-37.0); MEAN PLATELET VOLUME 7.6 fL (7.2-11.7); MONO # 0.5 K/uL (0.0-0.8); MONO % 4.9 % (0.0-10.0); RED CELL DISTRIBUTION WIDTH 13.1 % (11.5-14.5); WHITE BLOOD COUNT 9.9 K/uL (4.8-10.8)
[2016-12-09 11:31] LABS: CHLORIDE 98 mmol/L (98-107)
[2016-12-09 11:33] LABS: POTASSIUM 3.7 mmol/L (3.6-5.2); SODIUM 140 mmol/L (132-148)
[2016-12-09 11:35] LABS: ALB/GLOB RATIO 1.3 (1.0-2.1); ALKALINE PHOSPHATASE 73 U/L (38-126); ALT/SGPT 38 U/L (21-72); AST/SGOT 22 U/L (17-59); BILIRUBIN,TOTAL 1.2 mg/dL (0.2-1.3); BLOOD UREA NITROGEN 9 mg/dL (9-20); CARBON DIOXIDE 26 mmol/L (22-30); GFR AFRICAN-AMERICAN > 60; TOTAL PROTEIN 7.9 g/dL (6.3-8.3)
[2016-12-09 11:36] LABS: CALCIUM 9.7 mg/dl (8.6-10.4); GLUCOSE,RANDOM 92 mg/dL (75-110)
[2016-12-09] MEDS ORDERED: Alum-Mag Hydrox-Simethicone Susp (30 mL) PO STA (12:00)
[2016-12-09] MEDS ORDERED: Alum-Mag Hydrox-Simethicone Susp (30 mL) ONE (12:04)
[2016-12-09 12:06] VITALS: BP 134/88; PULSE 82; RESP 18; TEMP 98.1
[2016-12-09 12:32] VITALS: O2SAT 100
== END 2016-12-09 12:41 | disposition home or self-care (01) ==
LOC: C.ER 09:27
DX: K29.70 Gastritis, unspecified, without bleeding (principal)
CPT/HCPCS: 80053; 81001; 83690; 85025; 96361; 96374; 96375; 99284; J2765; J7040

== ENCOUNTER 2017-01-02 15:16 | Emergency (ER) | payer MEDICAID, OTHER ==
[2017-01-02 15:16] VITALS: BMI 19.5
[2017-01-02 15:28] VITALS: TEMP 98.1
[2017-01-02] MEDS ORDERED: Sodium Chloride 0.9% 1,000 ML IV ONE ×2 (15:42→18:58)
[2017-01-02] MEDS ORDERED: Aluminum Hydroxide/Magnesium Hydroxide Susp (30 mL) PO STA (15:42)
[2017-01-02] MEDS ORDERED: Morphine 4 MG/ML VIAL ONE (15:58)
[2017-01-02] MEDS ORDERED: Aluminum Hydroxide/Magnesium Hydroxide Susp (30 mL) ONE (15:58)
[2017-01-02] MEDS ORDERED: Sodium Chloride 0.9% 1,000 ML ONE (15:58)
[2017-01-02 16:15] LABS: BASO % 0.6 % (0.0-2.0); EOS % 0.4 % (0.0-4.0); HEMATOCRIT 44.7 % (35.0-51.0); MEAN CELL VOLUME 87.3 fL (80.0-94.0); MEAN CORPUSCULAR HEMOGLOBIN 29.8 pg (27.0-31.0); MEAN CORPUSCULAR HGB CONC 34.1 g/dL (33.0-37.0); MONO # 0.3 K/uL (0.0-0.8); MONO % 4.8 % (0.0-10.0); NRBC % 0.1 % (0.0-2.0); RED CELL DISTRIBUTION WIDTH 12.7 % (11.5-14.5); WHITE BLOOD COUNT 7.3 K/uL (4.8-10.8)
[2017-01-02 16:44] LABS: CHLORIDE 104 mmol/L (98-107); POTASSIUM 3.5 mmol/L (3.6-5.2); SODIUM 141 mmol/L (132-148)
[2017-01-02 16:46] LABS: ALB/GLOB RATIO 1.5 (1.0-2.1); ALKALINE PHOSPHATASE 56 U/L (38-126); AST/SGOT 30 U/L (17-59); BILIRUBIN,TOTAL 1.1 mg/dL (0.2-1.3); CARBON DIOXIDE 21 mmol/L (22-30); GFR AFRICAN-AMERICAN > 60; TOTAL PROTEIN 7.8 g/dL (6.3-8.3)
[2017-01-02 16:47] LABS: ALT/SGPT 32 U/L (21-72); BLOOD UREA NITROGEN 9 mg/dL (9-20); CALCIUM 9.6 mg/dl (8.6-10.4); GLUCOSE,RANDOM 101 mg/dL (75-110)
--- NOTE | 2017-01-02 19:01 | C.PDOC ---
History Of Present Illness <Taylor Holcomb - Last Filed: 01/02/17 19:02> <Neftaly Pineda - Last Filed: 01/02/17 20:33> 21 year old male with a history of gastritis presents to the ED with complaints of epigastric pain radiating to his chest beginning three days ago and worsening since this morning. Patient notes associated vomiting and decreased appetite. He had an endoscopy performed in October and notes the was the last time he experienced similar symptoms. Patient denies fever, diarrhea, shortness of breath, weakness, or numbness. (Taylor Holcomb) History Per: Patient, Family (sister) History/Exam Limitations: no limitations Onset/Duration Of Symptoms: Days (3 days ), Worse Since (this morning) Current Symptoms Are (Timing): Still Present Severity: Severe Pain Scale Rating Of: 10 Location Of Pain/Discomfort: Epigastric Radiation Of Pain To:: Chest Quality Of Discomfort: "Pain" Associated Symptoms: Vomiting. denies: Fever, Chills, Diarrhea Recent travel outside of the [place]: No Additional History Per: Prior Records <Taylor Holcomb - Last Filed: 01/02/17 19:02> <Neftaly Pineda - Last Filed: 01/02/17 20:33> Time Seen by Provider: 01/02/17 15:33 Chief Complaint (Nursing): Abdominal Pain Past Medical History Reviewed: Historical Data, Nursing Documentation, Vital Signs - Medical History PMH: Gastritis, GERD Surgical History: Endoscopy Denies: Pacemaker Family History: States: Unknown Family Hx - Social History Hx Tobacco Use: Yes (black & milds) Hx Alcohol Use: No Hx Substance Use: No - Immunization History Hx Tetanus Toxoid Vaccination: No Hx Influenza Vaccination: No Hx Pneumococcal Vaccination: No <Taylor Holcomb - Last Filed: 01/02/17 19:02> Review Of Systems Constitutional: Negative for: Fever, Chills Cardiovascular: Positive for: Chest Pain (radiating from abdomen ). Negative for: Palpitations Respiratory: Negative for: Cough, Shortness of Breath Gastrointestinal: Positive for: Vomiting, Abdominal Pain <Taylor Holcomb - Last Filed: 01/02/17 19:02> Physical Exam - Physical Exam Appears: Non-toxic, No Acute Distress, Other (Patient is shivering on exam ) Skin: Warm, Dry Head: Atraumatic, Normacephalic Eye(s): bilateral: Normal Inspection Oral Mucosa: Moist Neck: Supple Chest: Symmetrical, No Deformity Cardiovascular: Rhythm Regular, No Murmur Respiratory: Normal Breath Sounds, No Rales, No Rhonchi, No Wheezing Gastrointestinal/Abdominal: Soft, No Tenderness, No Distention, No Guarding, No Rebound Extremity: Normal ROM, No Tenderness Neurological/Psych: Oriented x3, Normal Speech, Normal Cognition, Normal Motor, Normal Sensation <Taylor Holcomb - Last Filed: 01/02/17 19:02> ED Course And Treatment - Laboratory Results Result Diagrams: 01/02/17 16:12 01/02/17 16:12 O2 Sat by Pulse Oximetry: 99 (room air ) Progress Note: UA, blood work, and labs were ordered. Patient was given morphine , pepcid, zofran, and IV fluids. <Taylor Holcomb - Last Filed: 01/02/17 19:02> - Laboratory Results Result Diagrams: 01/02/17 16:12 01/02/17 16:12 Lab Interpretation: No Acute Changes Progress Note: Pt was signed out to me at 7pm by Dr. Holcomb to reassess pt after meds. Pt feels much better. No abdominal pain. Tolerating PO. Reassessment Condition: Improved <Neftaly Pineda - Last Filed: 01/02/17 20:33> Disposition Counseled Patient/Family Regarding: Studies Performed, Diagnosis - Disposition Disposition Time: 18:59 <Taylor Holcomb - Last Filed: 01/02/17 19:02> Counseled Patient/Family Regarding: Studies Performed, Diagnosis, Need For Followup, Rx Given - Disposition Disposition Time: 20:31 <Neftaly Pineda - Last Filed: 01/02/17 20:33> - Disposition Referrals: Real Wheat MD [Staff Provider] - Disposition: HOME/ ROUTINE Condition: IMPROVED Additional Instructions: Follow up with your doctor for further evaluation and treatment. Return to the ER if you develop fever, vomiting, bloody or black stools, worsening of symptoms or if you have any other concerns. Prescriptions: Famotidine [Pepcid] 20 mg PO BID #30 tab Metoclopramide [Reglan] 1 tab PO TID PRN #15 tab PRN Reason: Nausea/Vomiting Instructions: Gastritis (ED) Forms: [employer] [facility] (Arabic) - Clinical Impression Clinical Impression: Abdominal pain - Scribe Statement The provider has reviewed the documentation as recorded by the Scribe <Taylor Holcomb - Last Filed: 01/02/17 19:02> <Neftaly Pineda - Last Filed: 01/02/17 20:33> - Scribe Statement Kira Ramsey All medical record entries made by the Scribe were at my direction and personally dictated by me. I have reviewed the chart and agree that the record accurately reflects my personal performance of the history, physical exam, medical decision making, and the department course for this patient. I have also personally directed, reviewed, and agree with the discharge instructions and disposition. (Taylor Holcomb) Physician Patient Turnover Patient Signed Over To: Neftaly Pineda Handoff Comments: patient with gastritis, pending IV fluids, morphine and Pepcis , re-eval and dispo <Taylor Holcomb - Last Filed: 01/02/17 19:02>
[2017-01-02 20:09] LABS: RBC URINE < 1 /hpf (0-3); URINE BILIRUBIN NEGATIVE (NEGATIVE); URINE BLOOD NEGATIVE (NEGATIVE); URINE COLOR Yellow (YELLOW); URINE GLUCOSE (UA) NORMAL (Normal); URINE KETONE TRACE mg/dL (NEGATIVE); URINE LEUKOCYTE ESTERASE NEG Leu/uL (Negative); URINE PROTEIN NEGATIVE (NEGATIVE); URINE UROBILINOGEN NORMAL mg/dL (0.2-1.0); WBC URINE < 1 /hpf (0-5)
[2017-01-02 20:43] VITALS: BP 129/74; PULSE 78; RESP 16; O2SAT 98
== END 2017-01-02 20:43 | disposition home or self-care (01) ==
LOC: C.ER 15:16
DX: R10.9 Unspecified abdominal pain (principal); K21.9 Gastro-esophageal reflux disease without esophagitis
CPT/HCPCS: 80053; 81001; 83690; 85025; 96361; 96374; 96375; 96376; 99285; G0480; J2270; J2405; J7040

== ENCOUNTER 2017-01-22 20:50 | Emergency (ER) | payer MEDICAID, OTHER ==
[2017-01-22 21:13] VITALS: BMI 16.9
[2017-01-22] MEDS ORDERED: Alum-Mag Hydrox-Simethicone Susp (30 mL) PO STA (22:40)
--- NOTE | 2017-01-22 22:47 | C.PDOC ---
History Of Present Illness 21 y/o M c PMHx gastritis p/w epigastric burning pain radiating to chest with vomiting x today. Patient states symptoms are the same as his typical gastritis. He reports low grade fever today of 99.8. Denies dyspnea, shortness of breath. On chart review, endoscopy performed earlier this year showing gastritis without ulcers noted. Time Seen by Provider: 01/22/17 22:27 Chief Complaint (Nursing): Abdominal Pain Past Medical History Vital Signs: Last Vital Signs Temp 99.8 F H 01/22/17 21:12 Pulse 91 H 01/22/17 21:12 Resp 18 01/22/17 21:12 BP 145/86 01/22/17 21:12 Pulse Ox 100 01/22/17 22:54 - Medical History PMH: Gastritis, GERD Denies: Atrial Fibrillation, Cardia Arrhythmia, CHF, Crohn's Disease, Diverticulitis, Gall Bladder Disease, HTN, Hypercholesterolemia, Mitral Valve Prolapse, Pancreatitis, Peripheral Edema, Chronic Kidney Disease Surgical History: Endoscopy Denies: Pacemaker - [facility] Procedures EXCISION OF LEFT LARGE INTESTINE, ENDO, DIAGN (02/27/16) EXCISION OF STOMACH, ENDO, DIAGN (11/05/16) Family History: States: Unknown Family Hx - Social History Hx Tobacco Use: Yes (black & milds) Hx Alcohol Use: No Hx Substance Use: Yes - Immunization History Hx Tetanus Toxoid Vaccination: No Hx Influenza Vaccination: No Hx Pneumococcal Vaccination: No Review Of Systems Except As Marked, All Systems Reviewed And Found Negative. Respiratory: Negative for: Shortness of Breath Skin: Negative for: Rash Physical Exam - Physical Exam Additional Physical Exam Comments: Constitutional: No acute distress. Head: Normocephalic. Atraumatic. Eyes: PERRL. EOMI. ENT: Moist mucous membranes. Neck: Supple. Cardiovascular: Regular rate. Radial pulses 2+ bilaterally. Chest: No tenderness. Respiratory: Clear to auscultation bilaterally. GI: Soft. Nontender. Nondistended. Back: No CVA tenderness. Musculoskeletal: No tenderness or swelling of extremities. Skin: No rash. Neurologic: Alert, no focal deficit. ED Course And Treatment - Laboratory Results Result Diagrams: 01/22/17 22:47 01/22/17 22:47 O2 Sat by Pulse Oximetry: 100 Medical Decision Making Medical Decision Making: Discussed patient's diagnosis of gastritis with patient and mother. Encouraged follow up with GI on recurring basis for persistent symptoms. Otherwise, currently in ED, will check labs for hydration status and give IVF, Zofran, Protonix, Pepcid, Maalox. No further ED evaluation indicated at this time. Disposition - Disposition Disposition: HOME/ ROUTINE Disposition Time: 23:22 Condition: STABLE Prescriptions: raNITIdine [Zantac Soln 5ml] 10 ml PO BID #300 ml Instructions: Gastritis (ED) Forms: [employer] [facility] (Turkish) - Clinical Impression Clinical Impression: Epigastric abdominal pain
[2017-01-22] MEDS ORDERED: Sodium Chloride 0.9% 1,000 ML IV STA (22:48)
[2017-01-22 22:50] LABS: BASO % 0.3 % (0.0-2.0); HEMATOCRIT 47.1 % (35.0-51.0); LYMPH # 1.1 K/uL (1.0-4.3); LYMPH % 10.8 % (20.0-40.0); MEAN CELL VOLUME 86.8 fL (80.0-94.0); MEAN CORPUSCULAR HEMOGLOBIN 30.4 pg (27.0-31.0); MEAN PLATELET VOLUME 7.8 fL (7.2-11.7); MONO # 0.6 K/uL (0.0-0.8); MONO % 5.5 % (0.0-10.0); NRBC % 0.1 % (0.0-2.0); RED CELL DISTRIBUTION WIDTH 13.1 % (11.5-14.5); WHITE BLOOD COUNT 10.4 K/uL (4.8-10.8)
[2017-01-22 23:00] LABS: CHLORIDE 98 mmol/L (98-107)
[2017-01-22 23:01] LABS: POTASSIUM 3.9 mmol/L (3.6-5.2); SODIUM 135 mmol/L (132-148)
[2017-01-22 23:03] LABS: ALB/GLOB RATIO 1.2 (1.0-2.1); ALKALINE PHOSPHATASE 79 U/L (38-126); ALT/SGPT 26 U/L (21-72); AST/SGOT 28 U/L (17-59); BILIRUBIN,TOTAL 0.8 mg/dL (0.2-1.3); BLOOD UREA NITROGEN 9 mg/dL (9-20); CARBON DIOXIDE 18 mmol/L (22-30); GFR AFRICAN-AMERICAN > 60; GLUCOSE,RANDOM 102 mg/dL (75-110); TOTAL PROTEIN 8.9 g/dL (6.3-8.3)
[2017-01-22 23:04] LABS: CALCIUM 10.3 mg/dl (8.6-10.4)
[2017-01-23 00:16] VITALS: BP 128/63; PULSE 88; RESP 16; TEMP 98; O2SAT 97
== END 2017-01-23 00:21 | disposition home or self-care (01) ==
LOC: C.ER 20:50
DX: R10.13 Epigastric pain (principal)
CPT/HCPCS: 80053; 83690; 85025; 96361; 96374; 96375; 99284; C9113; J2405; J7040

== ENCOUNTER 2017-03-25 13:52 | Emergency (ER) | payer MEDICAID, OTHER ==
[2017-03-25 13:53] VITALS: BMI 16.9
[2017-03-25 13:58] VITALS: RESP 18
[2017-03-25] MEDS ORDERED: Sodium Chloride 0.9% 1,000 ML IV ONE (14:45)
[2017-03-25] MEDS ORDERED: Sodium Chloride 0.9% 1,000 ML ONE (14:56)
[2017-03-25 15:07] LABS: BASO # 0.1 K/uL (0.0-0.2); BASO % 1.4 % (0.0-2.0); EOS % 0.3 % (0.0-4.0); HEMATOCRIT 48.1 % (35.0-51.0); LYMPH # 1.3 K/uL (1.0-4.3); LYMPH % 19.8 % (20.0-40.0); MEAN CELL VOLUME 87.8 fL (80.0-94.0); MEAN CORPUSCULAR HEMOGLOBIN 29.7 pg (27.0-31.0); MEAN CORPUSCULAR HGB CONC 33.8 g/dL (33.0-37.0); MEAN PLATELET VOLUME 6.5 fL (7.2-11.7); MONO # 0.5 K/uL (0.0-0.8); MONO % 7.1 % (0.0-10.0); WHITE BLOOD COUNT 6.3 K/uL (4.8-10.8)
[2017-03-25 15:19] LABS: ALB/GLOB RATIO 1.4 (1.0-2.1); ALKALINE PHOSPHATASE 62 U/L (38-126); ALT/SGPT 36 U/L (21-72); AST/SGOT 21 U/L (17-59); BILIRUBIN,TOTAL 0.8 mg/dL (0.2-1.3); BLOOD UREA NITROGEN 10 mg/dL (9-20); CALCIUM 9.2 mg/dl (8.6-10.4); CARBON DIOXIDE 34 mmol/L (22-30); CHLORIDE 100 mmol/L (98-107); GFR AFRICAN-AMERICAN > 60; GLUCOSE,RANDOM 93 mg/dL (75-110); SODIUM 143 mmol/L (132-148)
[2017-03-25 16:18] VITALS: BP 116/68; PULSE 74; TEMP 98
--- NOTE | 2017-03-25 16:19 | C.PDOC ---
History Of Present Illness Patient presents to ED c/o epigastric pain since yesterday. Patient has h/o gastritis and GERD (confirmed by endoscopy), and confirms current symptoms feel similar to prior episodes. He states he was recently given Protonix and Carafate by his GI specialist Dr Casarez, but he states it has not been helping. He denies chest pain, SOB, fever, vomiting/diarrhea. Time Seen by Provider: 03/25/17 14:12 Chief Complaint (Nursing): Abdominal Pain History Per: Patient History/Exam Limitations: no limitations Onset/Duration Of Symptoms: Hrs Current Symptoms Are (Timing): Still Present Severity: Moderate Location Of Pain/Discomfort: Epigastric Quality Of Discomfort: Burning, "Pain" Associated Symptoms: Nausea. denies: Vomiting, Diarrhea Past Medical History Reviewed: Historical Data, Nursing Documentation, Vital Signs Vital Signs: Last Vital Signs Temp 98.0 F 03/25/17 16:17 Pulse 74 03/25/17 16:17 Resp 18 03/25/17 16:17 BP 116/68 03/25/17 16:17 Pulse Ox 100 03/25/17 16:19 - Medical History PMH: Gastritis, GERD Surgical History: Endoscopy Denies: Pacemaker - [facility] Procedures EXCISION OF LEFT LARGE INTESTINE, ENDO, DIAGN (02/27/16) EXCISION OF STOMACH, ENDO, DIAGN (11/05/16) Family History: States: No Known Family Hx - Social History Hx Tobacco Use: Yes (black & milds) Hx Alcohol Use: No Hx Substance Use: Yes - Immunization History Hx Tetanus Toxoid Vaccination: No Hx Influenza Vaccination: No Hx Pneumococcal Vaccination: No Review Of Systems Except As Marked, All Systems Reviewed And Found Negative. Constitutional: Negative for: Fever, Chills Cardiovascular: Negative for: Chest Pain, Palpitations Respiratory: Negative for: Shortness of Breath Gastrointestinal: Positive for: Nausea, Abdominal Pain. Negative for: Vomiting , Diarrhea Genitourinary: Negative for: Dysuria, Hematuria Physical Exam - Physical Exam Appears: Well, Non-toxic, No Acute Distress Oral Mucosa: Moist Cardiovascular: Rhythm Regular Respiratory: Normal Breath Sounds, No Rales, No Rhonchi, No Wheezing Gastrointestinal/Abdominal: Bowel Sounds, Soft, Tenderness (mild epigastric TTP , (-) Robin's), No Distention, No Guarding, No Rebound Back: Normal Inspection, No CVA Tenderness Neurological/Psych: Oriented x3 ED Course And Treatment - Laboratory Results Result Diagrams: 03/25/17 15:04 03/25/17 15:04 O2 Sat by Pulse Oximetry: 100 (RA) Pulse Ox Interpretation: Normal Progress Note: Blood work ordered and reviewed. Patient given IV NS bolus, IV pepcid. Reevaluation Time: 16:15 Reassessment Condition: Improved (Patient reassessed, is resting comfortably and states his pain has improved. On exam, abdomen is soft and nontender. Blood work unremarkable. Patient has scheduled follow up appt with Dr. Casarez, was given Rx for Maalox plus. He understands he should return to ED if symptoms worsen.) Disposition Counseled Patient/Family Regarding: Studies Performed, Diagnosis, Need For Followup - Disposition Referrals: Carlos Casarez [Staff Provider] - Disposition: HOME/ ROUTINE Disposition Time: 16:15 Condition: STABLE Additional Instructions: FOLLOW UP WITH YOUR GI SPECIALIST SCHEDULED RETURN TO ER IF SYMPTOMS WORSEN Prescriptions: Aluminum Hydroxide/Magnesium [Maalox Plus 30 ml] 30 ml PO TID PRN #1 bottle PRN Reason: epigastric pain Instructions: Gastritis (ED) Forms: [employer] (Yemeni) Print Language: BELARUSIAN - Clinical Impression Clinical Impression: Gastritis
[2017-03-25 16:20] VITALS: O2SAT 100
== END 2017-03-25 16:25 | disposition home or self-care (01) ==
LOC: C.ER 13:52
DX: K29.70 Gastritis, unspecified, without bleeding (principal)
CPT/HCPCS: 80053; 83690; 85025; 96361; 96374; 99284; J7040

== ENCOUNTER 2017-07-01 11:04 | Emergency (ER) | payer OTHER ==
[2017-07-01 11:04] VITALS: BMI 16.9
[2017-07-01 11:09] VITALS: RESP 20
--- NOTE | 2017-07-01 11:32 | C.PDOC ---
History Of Present Illness 22 y/o male presents to the ED complaining of chest pain and abdominal pain for the past 2-3 days. Associated with nausea and vomiting. Patient has had multiple episodes of the same over the past year for which he has been seen here multiple times. Per mother patient had an endoscopy and colonoscopy with Dr. Hawkins, which were normal. Patient was prescribed unknown pills from GI which he took, but notes that in pill form the medication never worked quickly enough before vomiting episodes would begin. Mother notes patient has had a decreased appetite over the past year, with significant weight loss, as he refuses to eat many types of hot foods that exacerbate symptoms. Patient states he usually only eats cold cuts. Today patient was unable to tolerate liquids so mother brought him to the ER. Patient also developed difficulty urinating today. Otherwise denies any dysuria, frequency, diarrhea, dizziness, palpitations, shortness of breath, or back pain. Of note, patient occasionally smokes marijuana which improves his pain. PMD: Real Wheat Time Seen by Provider: 07/01/17 11:17 Chief Complaint (Nursing): Chest Pain History Per: Patient History/Exam Limitations: no limitations Onset/Duration Of Symptoms: Intermittent Episodes Current Symptoms Are (Timing): Still Present Past Medical History Reviewed: Historical Data, Nursing Documentation, Vital Signs Vital Signs: Last Vital Signs Temp 98.6 F 07/01/17 16:53 Pulse 63 07/01/17 16:53 Resp 20 07/01/17 16:53 BP 125/79 07/01/17 16:53 Pulse Ox 100 07/01/17 16:53 - Medical History PMH: Gastritis, GERD Denies: Atrial Fibrillation, Cardia Arrhythmia, CHF, Crohn's Disease, Diverticulitis, Gall Bladder Disease, HTN, Hypercholesterolemia, Mitral Valve Prolapse, Pancreatitis, Peripheral Edema, Chronic Kidney Disease Surgical History: Endoscopy Denies: Pacemaker - [facility] Procedures EXCISION OF LEFT LARGE INTESTINE, ENDO, DIAGN (02/27/16) EXCISION OF STOMACH, ENDO, DIAGN (11/05/16) Family History: States: Unknown Family Hx - Social History Hx Tobacco Use: Yes (black & milds) Hx Alcohol Use: No Hx Substance Use: Yes (marijuana) - Immunization History Hx Tetanus Toxoid Vaccination: No Hx Influenza Vaccination: No Hx Pneumococcal Vaccination: No Review Of Systems Except As Marked, All Systems Reviewed And Found Negative. Constitutional: Positive for: Weight loss, Other (Decreased appetite). Negative for: Fever, Chills Cardiovascular: Positive for: Chest Pain. Negative for: Palpitations Respiratory: Negative for: Shortness of Breath Gastrointestinal: Positive for: Nausea, Vomiting, Abdominal Pain. Negative for : Diarrhea Genitourinary: Positive for: Other (unable to urinate). Negative for: Dysuria, Frequency, Hematuria Musculoskeletal: Negative for: Back Pain Neurological: Negative for: Headache, Dizziness Physical Exam - Physical Exam Appears: No Acute Distress, Other (Thin appearing) Skin: Normal Color, Warm, Dry Head: Atraumatic, Normacephalic Eye(s): bilateral: PERRL, EOMI Nose: Normal Oral Mucosa: Moist Neck: Normal ROM, Supple Chest: Symmetrical, No Tenderness Cardiovascular: Rhythm Regular, No Murmur Respiratory: Normal Breath Sounds, No Accessory Muscle Use, No Rales, No Rhonchi , No Wheezing Gastrointestinal/Abdominal: Soft, Tenderness (mild diffuse tenderness), No Guarding, No Rebound Back: Normal Inspection, No CVA Tenderness, No Vertebral Tenderness Extremity: Bilateral: Atraumatic, Normal Color And Temperature, Normal ROM Neurological/Psych: Oriented x3, Normal Speech ED Course And Treatment - Laboratory Results Result Diagrams: 07/01/17 11:58 07/01/17 11:58 O2 Sat by Pulse Oximetry: 100 (RA) Pulse Ox Interpretation: Normal - Other Rad obstructive series x-ray X-Ray: Viewed By Me, Read By Radiologist Interpretation: FINDINGS: CHEST: Heart size appears within normal limits. No focal consolidation. No pleural effusion. No pneumothorax. Please note that chest x-ray has limited sensitivity for the detection of pulmonary masses. ABDOMEN AND PELVIS: Nonobstructive bowel gas pattern. No definite free air. No acute osseous abnormality is detected. IMPRESSION: No acute findings identified. - CT Scan/US CT abd/pelvis Other Rad Studies (CT/US): Read By Radiologist, Radiology Report Reviewed CT/US Interpretation: FINDINGS: LOWER THORAX: No visible consolidation, pleural effusion, or pneumothorax. LIVER: Unremarkable. GALLBLADDER AND BILE DUCTS: Unremarkable. PANCREAS: Unremarkable. SPLEEN: Unremarkable. ADRENALS: Unremarkable. KIDNEYS AND URETERS: The kidneys enhance symmetrically. No hydronephrosis or obstructing calculus identified. VASCULATURE: No aortic aneurysm. BOWEL: Stomach is nondistended. Lack of oral contrast limits evaluation for bowel pathology. Bowel loops appear within normal limits of caliber without evidence of obstruction. Colonic wall thickening of the proximal left colon likely exaggerated by under distension ; correlate clinically for possibility of colitis. APPENDIX: The appendix appears within normal limits of caliber. No secondary signs of acute appendicitis. PERITONEUM: No significant free fluid. No definite free air. LYMPH NODES: No bulky adenopathy identified. BLADDER: Unremarkable. REPRODUCTIVE: Unremarkable. BONES: No acute fracture. OTHER FINDINGS: None. IMPRESSION: Colonic wall thickening of the proximal left colon likely exaggerated by under distension ; correlate clinically for possibility of colitis. Medical Decision Making Medical Decision Making: Time: 12:06 Initial Plan: * Lipase * CMP * CBC * Urinalysis * X-ray obstructive series * IV fluids * 20 mg Pepcid IVP * 4 mg Zofran IVP * Maalox 30 ml PO * Lidocaine 2% viscous * 1 tab PO * Reevaluation Prior records reviewed: Old records reviewed, Patient last had ultrasound in [address] scan done in 2015, showed multiple short segments of colonic mural thickening 13:07 X-ray with no acute findings. Ordered CT abdomen/pelvis with IV contrast. On re-exam, the patient reports improvement of symptoms. Lungs are CTA, heart is RRR, abdomen is soft, non-tender and tolerating PO well. Ambulatory in the ED steady gait. Follow up with the medical doctor within 1-2 days. Return if worsened. Disposition - Disposition Referrals: Real Wheat MD [Staff Provider] - Carlos Hawkins [Staff Provider] - Disposition: HOME/ ROUTINE Disposition Time: 16:46 Condition: FAIR Additional Instructions: Follow up with the medical doctor within 1-2 days. Return if worsened. Prescriptions: Dicyclomine [Bentyl] 10 mg PO QID #30 cap Famotidine [Pepcid] 20 mg PO BID #20 tab Instructions: Dyspepsia Forms: [facility] (Czech) - Clinical Impression Clinical Impression: Abdominal pain, Epigastric abdominal pain - PA / BAGGAGE AGENT / Resident Statement MD/DO has reviewed & agrees with the documentation as recorded. - Scribe Statement The provider has reviewed the documentation as recorded by the Scribe (Taina Lux) All medical record entries made by the Scribe were at my direction and personally dictated by me. I have reviewed the chart and agree that the record accurately reflects my personal performance of the history, physical exam, medical decision making, and the department course for this patient. I have also personally directed, reviewed, and agree with the discharge instructions and disposition.
[2017-07-01 11:33] VITALS: O2SAT 100
[2017-07-01] MEDS ORDERED: Sodium Chloride 0.9% 1,000 ML IV ONE (12:06)
[2017-07-01] MEDS ORDERED: Sodium Chloride 0.9% 1,000 ML ONE (12:11)
[2017-07-01 12:13] LABS: EOS % 0.5 % (0.0-4.0); HEMOGLOBIN 16.2 g/dL (12.0-18.0); LYMPH # 1.3 K/uL (1.0-4.3); LYMPH % 15.7 % (20.0-40.0); MEAN CELL VOLUME 86.9 fL (80.0-94.0); MEAN CORPUSCULAR HGB CONC 34.5 g/dL (33.0-37.0); MEAN PLATELET VOLUME 7.1 fL (7.2-11.7); MONO # 0.3 K/uL (0.0-0.8); MONO % 3.1 % (0.0-10.0); NEUT # 6.8 K/uL (1.8-7.0); NEUT % 79.7 % (50.0-75.0); RBC 5.42 Mil/uL (4.40-5.90); RED CELL DISTRIBUTION WIDTH 12.7 % (11.5-14.5); WHITE BLOOD COUNT 8.6 K/uL (4.8-10.8)
[2017-07-01 12:14] LABS: BASO # 0.1 K/uL (0.0-0.2)
[2017-07-01 12:21] LABS: ALB/GLOB RATIO 1.3 (1.0-2.1); ALBUMIN 5.1 g/dL (3.5-5.0); ALT/SGPT 25 U/L (21-72); AST/SGOT 33 U/L (17-59); BLOOD UREA NITROGEN 12 mg/dL (9-20); CALCIUM 10.4 mg/dl (8.6-10.4); GFR AFRICAN-AMERICAN > 60; GFR NON-AFRICAN AMERICAN > 60; LIPASE 70 U/L (23-300)
[2017-07-01] MEDS ORDERED: Aluminum Hydroxide/Magnesium Hydroxide Susp (30 mL) PO STA (12:27)
[2017-07-01] MEDS ORDERED: Belladonna-Phenobarbital PO STA ×2 (12:29→16:42)
[2017-07-01] MEDS ORDERED: Aluminum Hydroxide/Magnesium Hydroxide Susp (30 mL) ONE (12:54)
[2017-07-01] MEDS ORDERED: Belladonna-Phenobarbital ONE ×2 (12:54→16:47)
[2017-07-01 13:38] LABS: URINE BILIRUBIN NEGATIVE (NEGATIVE); URINE BLOOD NEGATIVE (NEGATIVE); URINE CLARITY Clear (Clear); URINE COLOR Yellow (YELLOW); URINE GLUCOSE (UA) NORMAL (Normal); URINE LEUKOCYTE ESTERASE NEG Leu/uL (Negative); URINE PROTEIN 1+ mg/dL (NEGATIVE)
--- NOTE | 2017-07-01 13:38 | RAD ---
PROCEDURE: Radiographs of the chest and abdomen (obstructive series) HISTORY: abd pain, vomiting, COMPARISON: Abdominal ultrasound performed 11/17/16 TECHNIQUE: AP radiograph of the chest, with upright and supine radiographs of the abdomen. FINDINGS: CHEST: Heart size appears within normal limits. No focal consolidation. No pleural effusion. No pneumothorax. Please note that chest x-ray has limited sensitivity for the detection of pulmonary masses. ABDOMEN AND PELVIS: Nonobstructive bowel gas pattern. No definite free air. No acute osseous abnormality is detected. IMPRESSION: No acute findings identified.
[2017-07-01] MEDS ORDERED: Iodixanol 320 mg/ml 150 ml Bottle IV ONE (14:02)
--- NOTE | 2017-07-01 15:47 | CT ---
PROCEDURE: CT Abdomen and Pelvis with contrast HISTORY: vomiting, weight loss., left sided abd pain COMPARISON: Abdominal ultrasound performed 11/17/16 TECHNIQUE: Contrast dose: 100 mL Visipaque IV Radiation dose: Total exam DLP = mGy-cm. This CT exam was performed using one or more of the following dose reduction techniques: Automated exposure control, adjustment of the mA and/or kV according to patient size, and/or use of iterative reconstruction technique. FINDINGS: LOWER THORAX: No visible consolidation, pleural effusion, or pneumothorax. LIVER: Unremarkable. GALLBLADDER AND BILE DUCTS: Unremarkable. PANCREAS: Unremarkable. SPLEEN: Unremarkable. ADRENALS: Unremarkable. KIDNEYS AND URETERS: The kidneys enhance symmetrically. No hydronephrosis or obstructing calculus identified. VASCULATURE: No aortic aneurysm. BOWEL: Stomach is nondistended. Lack of oral contrast limits evaluation for bowel pathology. Bowel loops appear within normal limits of caliber without evidence of obstruction. Colonic wall thickening of the proximal left colon likely exaggerated by under distension ; correlate clinically for possibility of colitis. APPENDIX: The appendix appears within normal limits of caliber. No secondary signs of acute appendicitis. PERITONEUM: No significant free fluid. No definite free air. LYMPH NODES: No bulky adenopathy identified. BLADDER: Unremarkable. REPRODUCTIVE: Unremarkable. BONES: No acute fracture. OTHER FINDINGS: None. IMPRESSION: Colonic wall thickening of the proximal left colon likely exaggerated by under distension ; correlate clinically for possibility of colitis.
[2017-07-01 16:54] VITALS: BP 125/79; PULSE 63; TEMP 98.6
== END 2017-07-01 16:59 | disposition home or self-care (01) ==
LOC: C.ER 11:04
DX: R10.13 Epigastric pain (principal)
CPT/HCPCS: 74022; 74177; 80053; 81001; 83690; 85025; 96361; 96374; 96375; 99285; J2405; J7040; Q9967

== ENCOUNTER 2017-08-12 10:51 | Emergency (ER) | payer OTHER ==
[2017-08-12 10:51] VITALS: BMI 16.9
[2017-08-12 10:54] VITALS: RESP 20; TEMP 97.7; O2SAT 100
[2017-08-12] MEDS ORDERED: Sodium Chloride 0.9% 1,000 ML IV ONE (11:54)
[2017-08-12 12:01] LABS: SQUAMOUS EPITHIAL < 1 /hpf (0-5); URINE BILIRUBIN NEGATIVE (NEGATIVE); URINE BLOOD NEGATIVE (NEGATIVE); URINE CLARITY Hazy (Clear); URINE COLOR Amber (YELLOW); URINE GLUCOSE (UA) NORMAL (Normal); URINE LEUKOCYTE ESTERASE NEG Leu/uL (Negative); URINE PROTEIN 2+ mg/dL (NEGATIVE)
[2017-08-12] MEDS ORDERED: Sodium Chloride 0.9% 1,000 ML ONE (12:13)
[2017-08-12 12:14] LABS: BASO % 0.4 % (0.0-2.0); EOS % 0.1 % (0.0-4.0); LYMPH # 1.5 K/uL (1.0-4.3); LYMPH % 14.3 % (20.0-40.0); MEAN CELL VOLUME 88.4 fL (80.0-94.0); MEAN CORPUSCULAR HEMOGLOBIN 30.1 pg (27.0-31.0); MEAN CORPUSCULAR HGB CONC 34.1 g/dL (33.0-37.0); MEAN PLATELET VOLUME 7.2 fL (7.2-11.7); MONO # 0.6 K/uL (0.0-0.8); MONO % 6.1 % (0.0-10.0); NEUT # 8.2 K/uL (1.8-7.0); NEUT % 79.1 % (50.0-75.0); NRBC % 0.1 % (0.0-2.0); RBC 5.33 Mil/uL (4.40-5.90); RED CELL DISTRIBUTION WIDTH 13.4 % (11.5-14.5); WHITE BLOOD COUNT 10.4 K/uL (4.8-10.8)
[2017-08-12 12:25] LABS: ALB/GLOB RATIO 1.3 (1.0-2.1); ALBUMIN 4.9 g/dL (3.5-5.0); ALT/SGPT 13 U/L (21-72); AST/SGOT 26 U/L (17-59); BLOOD UREA NITROGEN 11 mg/dL (9-20); CALCIUM 10.4 mg/dl (8.6-10.4); GFR AFRICAN-AMERICAN > 60; GFR NON-AFRICAN AMERICAN > 60; LIPASE 52 U/L (23-300)
[2017-08-12 12:51] VITALS: BP 129/73; PULSE 70
--- NOTE | 2017-08-12 12:56 | C.PDOC ---
History Of Present Illness 22 y/o male with history of Gastritis and GERD presents to ED with c/o epigastric pain radiating to chest since yesterday associated with vomiting. Patient reports multiple prior episodes of same in past and states this symptoms are unchanged. Patient states he had colonoscopy and endoscopy by Dr. Hawkins last year. Patient states he has been trying various po medication in the last year with no improvement but admits to not taking any medication the last 2 days. Patient denies fever, diarrhea, chest pain, sob, testicular pain, or dysuria. Time Seen by Provider: 08/12/17 11:35 Chief Complaint (Nursing): Abdominal Pain History Per: Patient History/Exam Limitations: no limitations Onset/Duration Of Symptoms: Days Current Symptoms Are (Timing): Still Present Location Of Pain/Discomfort: Epigastric Past Medical History Reviewed: Historical Data, Nursing Documentation, Vital Signs Vital Signs: Last Vital Signs Temp 97.7 F 08/12/17 10:52 Pulse 70 08/12/17 12:51 Resp 20 08/12/17 12:51 BP 129/73 08/12/17 12:51 Pulse Ox 100 08/12/17 14:21 - Medical History PMH: Gastritis, GERD Surgical History: Endoscopy - [facility] Procedures EXCISION OF LEFT LARGE INTESTINE, ENDO, DIAGN (02/27/16) EXCISION OF STOMACH, ENDO, DIAGN (11/05/16) Family History: States: Unknown Family Hx - Social History Hx Tobacco Use: Yes (black & milds) Hx Alcohol Use: No Hx Substance Use: Yes (marijuana) - Immunization History Hx Tetanus Toxoid Vaccination: No Hx Influenza Vaccination: No Hx Pneumococcal Vaccination: No Review Of Systems Constitutional: Negative for: Fever, Chills Gastrointestinal: Positive for: Vomiting, Abdominal Pain. Negative for: Nausea , Diarrhea Skin: Negative for: Rash Physical Exam - Physical Exam Appears: Non-toxic, No Acute Distress Skin: Warm, Dry, No Rash Head: Atraumatic, Normacephalic Eye(s): bilateral: Normal Inspection, EOMI Oral Mucosa: Moist Neck: Normal ROM, Supple Cardiovascular: Rhythm Regular Respiratory: Normal Breath Sounds, No Rales, No Rhonchi, No Wheezing Gastrointestinal/Abdominal: Soft, Tenderness (Epigastric), No Guarding, No Rebound Extremity: Normal ROM, Capillary Refill (<2 seconds) Neurological/Psych: Oriented x3, Normal Speech, Normal Cognition ED Course And Treatment - Laboratory Results Result Diagrams: 08/12/17 12:10 08/12/17 12:10 O2 Sat by Pulse Oximetry: 100 (RA) Pulse Ox Interpretation: Normal Progress Note: Previous visits for same symtpoms reviewed, most recent CT last month. Toradol, Zofran, Protonix and IV fluids adminsitered. On re eval pt feels better, abd soft non tender and is afebrile. Po challenge ordered, Apple juice given. Patient states apple juice caused some epigastric burining.Pt was offered additional imaging though him and his mom refused. Mother notes symtpomats unchanged and will try outpt RX. Also notes pt has appt with Dr. Wheat tomorrow. Instructed to return to ER if symptoms persist or worsen. Disposition - Disposition Referrals: Carlos Hawkins [Staff Provider] - Disposition: HOME/ ROUTINE Disposition Time: 12:55 Condition: STABLE Additional Instructions: Follow up with the GI specialist in 1-2 days. Return to ER if symptoms persist or worsen. Prescriptions: Calcium Carbonate/Simethicone [Maalox Advanced 1000 mg-60 mg] 1 ctb PO BID PRN # 20 ctb PRN Reason: Gi Distress Instructions: Gastritis (DC) Forms: Gl[employer] .fr [place] (Kinyarwanda) - Clinical Impression Clinical Impression: Abdominal pain - PA / DEVELOPMENTAL TRAINING COUNSELOR / Resident Statement MD/DO has reviewed & agrees with the documentation as recorded. - Scribe Statement The provider has reviewed the documentation as recorded by the Ariel Marquez All medical record entries made by the Milliibmike were at my direction and personally dictated by me. I have reviewed the chart and agree that the record accurately reflects my personal performance of the history, physical exam, medical decision making, and the department course for this patient. I have also personally directed, reviewed, and agree with the discharge instructions and disposition.
== END 2017-08-12 13:42 | disposition home or self-care (01) ==
LOC: C.ER 10:51
DX: R10.9 Unspecified abdominal pain (principal); K21.9 Gastro-esophageal reflux disease without esophagitis
CPT/HCPCS: 80053; 81001; 83690; 85025; 96361; 96374; 96375; 99285; C9113; J1885; J2405; J7040

== ENCOUNTER 2017-08-13 07:37 | Observation (INO) | payer OTHER ==
[2017-08-13 07:45] VITALS: BMI 17.2
[2017-08-13 08:32] LABS: BASO % 0.6 % (0.0-2.0); EOS % 0.5 % (0.0-4.0); HEMOGLOBIN 16.2 g/dL (12.0-18.0); LYMPH # 1.7 K/uL (1.0-4.3); LYMPH % 20.8 % (20.0-40.0); MEAN CELL VOLUME 88.1 fL (80.0-94.0); MEAN CORPUSCULAR HEMOGLOBIN 30.6 pg (27.0-31.0); MEAN CORPUSCULAR HGB CONC 34.8 g/dL (33.0-37.0); MEAN PLATELET VOLUME 6.8 fL (7.2-11.7); MONO # 0.5 K/uL (0.0-0.8); MONO % 6.5 % (0.0-10.0); NEUT # 5.8 K/uL (1.8-7.0); NEUT % 71.6 % (50.0-75.0); NRBC % 0.1 % (0.0-2.0); RBC 5.27 Mil/uL (4.40-5.90); RED CELL DISTRIBUTION WIDTH 13.2 % (11.5-14.5); WHITE BLOOD COUNT 8.1 K/uL (4.8-10.8)
[2017-08-13 08:50] LABS: ALB/GLOB RATIO 1.2 (1.0-2.1); ALT/SGPT 13 U/L (21-72); AST/SGOT 24 U/L (17-59); BLOOD UREA NITROGEN 10 mg/dL (9-20); CALCIUM 10.2 mg/dl (8.6-10.4); GFR AFRICAN-AMERICAN > 60; GFR NON-AFRICAN AMERICAN > 60; LIPASE 77 U/L (23-300)
--- NOTE | 2017-08-13 08:53 | C.PDOC ---
History Of Present Illness 22 y/o male with history of Gastritis and GERD presents to ED with c/o epigastric pain for two days associated with vomiting. Patient was evaluated yesterday for the same symptoms, felt better after the medication but the symptoms returned. H/o multiple prior episodes of same in past with most recent CT scan last month and states this symptoms are unchanged. Patient states he had colonoscopy and endoscopy by Dr. Hawkins last year. Patient states he has been trying various po medication in the last year with no improvement but admits to not taking any medication the last 2 days. Patient denies fever, diarrhea, chest pain, sob, testicular pain, or dysuria. Time Seen by Provider: 08/13/17 07:38 Chief Complaint (Nursing): Abdominal Pain History Per: Patient History/Exam Limitations: no limitations Onset/Duration Of Symptoms: Intermittent Episodes Current Symptoms Are (Timing): Still Present Past Medical History Vital Signs: Last Vital Signs Temp 98.6 F 08/13/17 10:05 Pulse 60 08/13/17 10:05 Resp 16 08/13/17 10:05 BP 147/76 08/13/17 10:05 Pulse Ox 100 08/13/17 10:05 - Medical History PMH: Gastritis, GERD Denies: Atrial Fibrillation, Cardia Arrhythmia, CHF, Crohn's Disease, Diverticulitis, Gall Bladder Disease, HTN, Hypercholesterolemia, Mitral Valve Prolapse, Pancreatitis, Peripheral Edema, Chronic Kidney Disease Surgical History: Endoscopy Denies: Pacemaker - [facility] Procedures EXCISION OF LEFT LARGE INTESTINE, ENDO, DIAGN (02/27/16) EXCISION OF STOMACH, ENDO, DIAGN (11/05/16) Family History: States: Unknown Family Hx - Social History Hx Tobacco Use: Yes (black & milds) Hx Alcohol Use: No Hx Substance Use: Yes (marijuana) - Immunization History Hx Tetanus Toxoid Vaccination: No Hx Influenza Vaccination: No Hx Pneumococcal Vaccination: No Review Of Systems Except As Marked, All Systems Reviewed And Found Negative. Gastrointestinal: Positive for: Nausea, Vomiting, Abdominal Pain Physical Exam - Physical Exam Appears: Well, Non-toxic, Other (pt is tearful and uncomfortable) Skin: Normal Color, Warm, Dry Head: Atraumatic, Normacephalic Eye(s): bilateral: Normal Inspection, EOMI Nose: Normal Oral Mucosa: Moist Neck: Normal, Normal ROM, Supple Chest: Symmetrical Cardiovascular: Rhythm Regular Respiratory: Normal Breath Sounds Gastrointestinal/Abdominal: Soft, Tenderness (epigastric tenderness) Back: Normal Inspection, No CVA Tenderness, No Vertebral Tenderness Extremity: Normal ROM Neurological/Psych: Oriented x3, Normal Speech ED Course And Treatment - Laboratory Results Result Diagrams: 08/13/17 08:24 08/13/17 08:24 O2 Sat by Pulse Oximetry: 97 Progress Note: Protonix, toradol and zofran ordered. On re-evaluation, pt pain persists. Maalox and Morphine ordered. Case discussed with Dr Hawkins, who evaluated pt at bedside and agreed upon plan and admission. Case discussed with Dr Wheat, agreed upon plan and admission. Disposition - Disposition Disposition: HOSPITALIZED Disposition Time: 09:02 Condition: STABLE - Clinical Impression Clinical Impression: Epigastric abdominal pain, Intractable abdominal pain
[2017-08-13 08:56] LABS: SQUAMOUS EPITHIAL < 1 /hpf (0-5); URINE BACTERIA RARE (<OCC); URINE BILIRUBIN NEGATIVE (NEGATIVE); URINE BLOOD NEGATIVE (NEGATIVE); URINE CLARITY Clear (Clear); URINE COLOR Yellow (YELLOW); URINE GLUCOSE (UA) NORMAL (Normal); URINE LEUKOCYTE ESTERASE NEG Leu/uL (Negative); URINE PROTEIN NEGATIVE (NEGATIVE); URINE UROBILINOGEN NORMAL mg/dL (0.2-1.0)
[2017-08-13] MEDS ORDERED: Alum-Mag Hydrox-Simethicone Susp (30 mL) PO STA (09:13)
[2017-08-13 09:14] LABS: BARBITURATES, UR NEGATIVE (NEGATIVE); BENZODIAZEPINES, UR NEGATIVE (NEGATIVE); OPIATES, UR NEGATIVE (NEGATIVE); PHENCYCLIDINE, UR NEGATIVE (NEGATIVE)
[2017-08-13] MEDS ORDERED: Aluminum Hydroxide/Magnesium Hydroxide Susp (30 mL) ONE (09:27)
[2017-08-13] MEDS ORDERED: Morphine 4 MG/ML VIAL ONE (09:27)
[2017-08-13 10:11] VITALS: TEMP 98.6
[2017-08-13] MEDS ORDERED: Dextrose 5%/0.9% NS 1,000 ML IV SCH (11:15)
[2017-08-13] MEDS ORDERED: Aluminum Hydroxide/Magnesium Hydroxide Susp (30 mL) PO PRN (11:25)
[2017-08-13 16:01] VITALS: BP 148/79; PULSE 62; RESP 20; O2SAT 100
[2017-08-13] MEDS ORDERED: Morphine 4 MG/ML VIAL IVP STA (17:30)
--- NOTE | 2017-08-14 08:32 | CP.PCM.HP ---
History of Present Illness - History of Present Illness History of Present Illness: CC: abdominal pain HPI: 22 y/o male well known to me with history of several episodes of hospitalizations due to abdominla pain s/p EGD and colonoscopy, Gastritis and GERD presents to ED with c/o epigastric pain for two days associated with vomiting. Patient was evaluated yesterday for the same symptoms, felt better after the medication but the symptoms returned. H/o multiple prior episodes of same in past with most recent CT scan last month and states this symptoms are unchanged. Patient states he had colonoscopy and endoscopy by Dr. Hawkins last year. Patient states he has been trying various po medication in the last year with no improvement but admits to not taking any medication the last 2 days. Patient denies fever, diarrhea, chest pain, sob, testicular pain, or dysuria. Present on Admission - Present on Admission Any Indicators Present on Admission: Yes Review of Systems - Review of Systems Systems not reviewed;Unavailable: Acuity of Condition - Constitutional Constitutional: absent: As Per HPI, Anorexia, Chills, Daytime Sleepiness, Excessive Sweating, Fatigue, Fever, Frequent Falls, Headache, Increased Appetite , Lethargy, Malaise, Night Sweats, Snoring, Sleep Apnea, Weight Gain, Weight Loss, Weakness, Other - EENT Eyes: absent: As Per HPI, Blind Spots, Blurred Vision, Change in Vision, Decreased Night Vision, Diplopia, Discharge, Dry Eye, Exophthalmos, Floaters, Irritation, Itchy Eyes, Loss of Peripheral Vision, Pain, Photophobia, Requires Corrective Lenses, Sees Flashes, Spots in Vision, Tunnel Vision, Other Visual Disturbances, Loss of Vision, Other Nose/Mouth/Throat: absent: As Per HPI, Epistaxis, Nasal Congestion, Nasal Discharge, Nasal Obstruction, Nasal Trauma, Nose Pain, Post Nasal Drip, Sinus Pain, Sinus Pressure, Bleeding Gums, Change in Voice, Dental Pain, Dry Mouth, Dysphagia, Halitosis, Hoarsness, Lip Swelling, Mouth Lesions, Mouth Pain, Odynophagia, Sore Throat, Throat Swelling, Tongue Swelling, Facial Pain, Neck Pain, Neck Mass, Other - Cardiovascular Cardiovascular: absent: As Per HPI, Acrocyanosis, Chest Pain, Chest Pain at Rest , Chest Pain with Activity, Claudication, Diaphoresis, Dyspnea, Dyspnea on Exertion, Edema, Irregular Heart Rhythm, Pain Radiating to Arm/Neck/Jaw, Leg Edema, Leg Ulcers, Lightheadedness, Orthopnea, Palpitations, Paroxysmal Nocturnal Dyspnea, Pedal Edema, Radiating Pain, Rapid Heart Rate, Slow Heart Rate, Syncope, Other - Gastrointestinal Gastrointestinal: Abdominal Pain, Heartburn, Nausea - Genitourinary Genitourinary: absent: As Per HPI, Change in Urinary Stream, Difficulty Urinating, Dysuria, Flank Pain, Hematuria, Pyuria, Nocturia, Urinary Incontinence, Urinary Frequency, Urinary Hesitance, Urinary Urgency, Voiding Freq/Small Amts, Freq UTI, Hx Renal/Bladder Calculi, Hx /Renal Surgery, Bladder Distension, Other - Musculoskeletal Musculoskeletal: absent: As Per HPI, Abnormal Gait, Arthralgias, Atrophy, Back Pain, Deformity, Joint Swelling, Limited Range of Motion, Loss of Height, Muscle Cramps, Muscle Weakness, Myalgias, Neck Pain, Numbness, Radiating Pain into Limb, Stiffness, Tingling, Other - Integumentary Integumentary: absent: As Per HPI, Acne, Alopecia, Bleeding Lesions, Change in Hair, Change in Nails, Change in Pigmentation, Changing Lesions, Dry Skin, Erythema, Furuncle, Hirsutism, Lesions, New Lesions, Non-Healing Lesions, Photosensitivity, Pruritus, Rash, Skin Pain, Skin Ulcer, Sores, Striae, Swelling , Unusual Bruising, Wounds, Jaundice, Other Past Patient History - Infectious Disease Hx of Infectious Diseases: None - Past Medical History & Family History Past Medical History?: Yes - Past Social History Smoking Status: Light Smoker < 10 Cigarettes Daily - CARDIAC Hx Atrial Fibrillation: No Hx Cardia Arrhythmia: No Hx Congestive Heart Failure: No Hx Hypercholesterolemia: No Hx Hypertension: No Hx Mitral Valve Prolapse: No Hx Pacemaker: No Hx Peripheral Edema: No - PULMONARY Hx Respiratory Disorders: No - NEUROLOGICAL Hx Neurological Disorder: No - HEENT Hx HEENT Problems: No - RENAL Hx Chronic Kidney Disease: No - ENDOCRINE/METABOLIC Hx Endocrine Disorders: No - HEMATOLOGICAL/ONCOLOGICAL Hx Blood Disorders: No - INTEGUMENTARY Hx Dermatological Problems: No - MUSCULOSKELETAL/RHEUMATOLOGICAL Hx Falls: No - GASTROINTESTINAL Hx Crohn's Disease: No Hx Diverticulitis: No Hx Gall Bladder Disease: No Hx Gastritis: Yes Hx Pancreatitis: No - GENITOURINARY/GYNECOLOGICAL Hx Genitourinary Disorders: No - PSYCHIATRIC Hx Substance Use: Yes (marijuana) - SURGICAL HISTORY Hx Surgeries: Yes - ANESTHESIA Hx Anesthesia: Yes Hx Anesthesia Reactions: No Meds Allergies/Adverse Reactions: Allergies Allergy/AdvReac Type Severity Reaction Status Date / Time No Known Allergies Allergy Verified 08/12/17 10:55 Physical Exam - Constitutional Appears: No Acute Distress - Head Exam Head Exam: ATRAUMATIC, NORMAL INSPECTION, NORMOCEPHALIC - Eye Exam Eye Exam: EOMI, Normal appearance, PERRL Pupil Exam: NORMAL ACCOMODATION, PERRL - Respiratory Exam Respiratory Exam: Clear to Auscultation Bilateral, NORMAL BREATHING PATTERN - Cardiovascular Exam Cardiovascular Exam: REGULAR RHYTHM - GI/Abdominal Exam GI & Abdominal Exam: Hyperactive Bowel Sounds, Tenderness Additional comments: epigastric tenderness no gaurding, rebound, oranomegaly - Rectal Exam Rectal Exam: Deferred Results - Vital Signs Recent Vital Signs: Last Vital Signs Temp 98.6 F 08/13/17 16:00 Pulse 62 08/13/17 16:00 Resp 20 08/13/17 16:00 BP 148/79 08/13/17 16:00 Pulse Ox 100 08/13/17 18:47 - Labs Result Diagrams: 08/13/17 08:24 08/13/17 08:24 Labs: Laboratory Results - last 24 hr 08/13/17 08/13/17 08/13/17 08:24 08:24 08:43 WBC 8.1 RBC 5.27 Hgb 16.2 Hct 46.5 MCV 88.1 MCH 30.6 MCHC 34.8 RDW 13.2 Plt Count 345 MPV 6.8 L Neut % (Auto) 71.6 Lymph % (Auto) 20.8 Hunt % (Auto) 6.5 Eos % (Auto) 0.5 Baso % (Auto) 0.6 Neut # (Auto) 5.8 Lymph # (Auto) 1.7 Hunt # (Auto) 0.5 Eos # (Auto) 0.0 Baso # (Auto) 0.0 Sodium 147 Potassium 3.6 Chloride 101 Carbon Dioxide 26 Anion Gap 24 H BUN 10 Creatinine 0.9 Est GFR ( Amer) > 60 Est GFR (Non-Af Amer) > 60 Random Glucose 99 Calcium 10.2 Total Bilirubin 1.4 H AST 24 ALT 13 L Alkaline Phosphatase 61 Total Protein 9.1 H Albumin 5.0 Globulin 4.1 H Albumin/Globulin Ratio 1.2 Lipase 77 Urine Color Yellow Urine Clarity Clear Urine pH 7.0 Ur Specific Wilcox 1.020 Urine Protein Negative Urine Glucose (UA) Normal Urine Ketones 1+ H Urine Blood Negative Urine Nitrate Negative Urine Bilirubin Negative Urine Urobilinogen Normal Ur Leukocyte Esterase Neg Urine WBC (Auto) 1 Urine RBC (Auto) 1 Ur Squamous Epith Cells < 1 Urine Bacteria Rare Urine Opiates Screen Urine Methadone Screen Ur Barbiturates Screen Ur Phencyclidine Scrn Ur Amphetamines Screen U Benzodiazepines Scrn U Oth Cocaine Metabols U Cannabinoids Screen 08/13/17 08:43 WBC RBC Hgb Hct MCV MCH MCHC RDW Plt Count MPV Neut % (Auto) Lymph % (Auto) Hunt % (Auto) Eos % (Auto) Baso % (Auto) Neut # (Auto) Lymph # (Auto) Hunt # (Auto) Eos # (Auto) Baso # (Auto) Sodium Potassium Chloride Carbon Dioxide Anion Gap BUN Creatinine Est GFR ( Amer) Est GFR (Non-Af Amer) Random Glucose Calcium Total Bilirubin AST ALT Alkaline Phosphatase Total Protein Albumin Globulin Albumin/Globulin Ratio Lipase Urine Color Urine Clarity Urine pH Ur Specific Wilcox Urine Protein Urine Glucose (UA) Urine Ketones Urine Blood Urine Nitrate Urine Bilirubin Urine Urobilinogen Ur Leukocyte Esterase Urine WBC (Auto) Urine RBC (Auto) Ur Squamous Epith Cells Urine Bacteria Urine Opiates Screen Negative Urine Methadone Screen Negative Ur Barbiturates Screen Negative Ur Phencyclidine Scrn Negative Ur Amphetamines Screen Negative U Benzodiazepines Scrn Negative U Oth Cocaine Metabols Negative U Cannabinoids Screen Positive H Assessment & Plan (1) Dehydration Assessment and Plan: admit IV fluids Status: Acute (2) Abdominal pain Assessment and Plan: protonix GI eval Status: Acute (3) Gastritis Status: Acute
== END 2017-08-13 19:25 | disposition left against medical advice (07) ==
LOC: C.ER 07:37 → C.3T 09:04
PROVIDERS: ADMIT Internal Medicine; ATTEND Internal Medicine
DX: K29.70 Gastritis, unspecified, without bleeding (principal); E86.0 Dehydration; K21.9 Gastro-esophageal reflux disease without esophagitis; F17.210 Nicotine dependence, cigarettes, uncomplicated; F12.11 Cannabis abuse, in remission
CPT/HCPCS: 80053; 80324; 80345; 80346; 80349; 80353; 80358; 80361; 81001; 83690; 83992; 85025; 96374; 96375; 96376; 99285; C9113; G0378; J1885; J2270; J2405; J7042

== ENCOUNTER 2017-11-25 09:06 | Emergency (ER) | payer OTHER ==
[2017-11-25 09:06] VITALS: BMI 16.9
[2017-11-25] MEDS ORDERED: Sodium Chloride 0.9% 1,000 ML IV ONE (10:06)
[2017-11-25] MEDS ORDERED: Belladonna-Phenobarbital PO STA (10:06)
[2017-11-25] MEDS ORDERED: Aluminum Hydroxide/Magnesium Hydroxide Susp (30 mL) PO STA (10:06)
[2017-11-25 10:29] LABS: BASO % 0.3 % (0.0-2.0); EOS % 0.1 % (0.0-4.0); HEMOGLOBIN 17.3 g/dL (12.0-18.0); LYMPH # 0.9 K/uL (1.0-4.3); LYMPH % 10.7 % (20.0-40.0); MEAN CELL VOLUME 89.1 fL (80.0-94.0); MEAN CORPUSCULAR HEMOGLOBIN 30.7 pg (27.0-31.0); MEAN CORPUSCULAR HGB CONC 34.5 g/dL (33.0-37.0); MEAN PLATELET VOLUME 7.3 fL (7.2-11.7); MONO # 0.3 K/uL (0.0-0.8); MONO % 3.2 % (0.0-10.0); NEUT % 85.7 % (50.0-75.0); NRBC % 0.3 % (0.0-2.0); RBC 5.63 Mil/uL (4.40-5.90); RED CELL DISTRIBUTION WIDTH 13.1 % (11.5-14.5); WHITE BLOOD COUNT 8.2 K/uL (4.8-10.8)
[2017-11-25] MEDS ORDERED: Alum-Mag Hydrox-Simethicone Susp (30 mL) ONE (10:33)
[2017-11-25] MEDS ORDERED: Sodium Chloride 0.9% 1,000 ML ONE (10:33)
[2017-11-25] MEDS ORDERED: Belladonna-Phenobarbital ONE (10:33)
[2017-11-25 10:43] LABS: ALB/GLOB RATIO 1.5 (1.0-2.1); ALBUMIN 5.8 g/dL (3.5-5.0); ALT/SGPT 22 U/L (21-72); AST/SGOT 39 U/L (17-59); BLOOD UREA NITROGEN 10 mg/dL (9-20); CALCIUM 11.1 mg/dl (8.6-10.4); GFR AFRICAN-AMERICAN > 60; GFR NON-AFRICAN AMERICAN > 60; LIPASE 69 U/L (23-300)
[2017-11-25] MEDS ORDERED: Iodixanol 320 MG/ML 100 ML BOTTLE IV ONE (11:44)
--- NOTE | 2017-11-25 12:57 | CT ---
Date of service: 11/25/2017 PROCEDURE: CT Abdomen and Pelvis with contrast HISTORY: diffuse abd pain (upper > lower) COMPARISON: 07/01/2017 TECHNIQUE: Contrast dose: 100 mL Visipaque 320 Radiation dose: Total exam DLP = 210.62 mGy-cm. This CT exam was performed using one or more of the following dose reduction techniques: Automated exposure control, adjustment of the mA and/or kV according to patient size, and/or use of iterative reconstruction technique. FINDINGS: LOWER THORAX: Unremarkable. LIVER: Unremarkable. No gross lesion or ductal dilatation. GALLBLADDER AND BILE DUCTS: Unremarkable. PANCREAS: Unremarkable. No gross lesion or ductal dilatation. SPLEEN: Unremarkable. ADRENALS: Unremarkable. No mass. KIDNEYS AND URETERS: Unremarkable. No hydronephrosis. No solid mass. VASCULATURE: Unremarkable. No aortic aneurysm. BOWEL: Mild retained stool in the rectum. No bowel obstruction. No other abnormal bowel loops. APPENDIX: Normal appendix. PERITONEUM: Unremarkable. No free fluid. No free air. LYMPH NODES: Unremarkable. No enlarged lymph nodes. BLADDER: Unremarkable. REPRODUCTIVE: Normal prostate. BONES: No acute fracture. OTHER FINDINGS: None. IMPRESSION: No acute abnormality. Unremarkable examination.
--- NOTE | 2017-11-25 13:10 | C.PDOC ---
History Of Present Illness 22 y/o male, with a Hx of gastritis, present to the ER with epigastric pain radiating to the chest since this morning. 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 He admits to failing to take his medication. The patient denies any fever, change in diet, dysuria or hematuria. Time Seen by Provider: 11/25/17 10:00 Chief Complaint (Nursing): Chest Pain History/Exam Limitations: no limitations Onset/Duration Of Symptoms: Hrs Current Symptoms Are (Timing): Still Present Quality: "Pain" Associated Symptoms: Nausea, Other (Vomiting ) Recent travel outside of the [place]: No Past Medical History Reviewed: Historical Data, Nursing Documentation, Vital Signs Vital Signs: Last Vital Signs Temp 99.0 F 11/25/17 13:50 Pulse 65 11/25/17 13:50 Resp 18 11/25/17 13:50 BP 146/69 11/25/17 13:50 Pulse Ox 100 11/25/17 13:50 - Medical History PMH: Gastritis, GERD Denies: Atrial Fibrillation, Cardia Arrhythmia, CHF, Crohn's Disease, Diverticulitis, Gall Bladder Disease, HTN, Hypercholesterolemia, Mitral Valve Prolapse, Pancreatitis, Peripheral Edema, Chronic Kidney Disease Surgical History: Endoscopy Denies: Pacemaker - [facility] Procedures EXCISION OF LEFT LARGE INTESTINE, ENDO, DIAGN (02/27/16) EXCISION OF STOMACH, ENDO, DIAGN (11/05/16) Family History: States: Unknown Family Hx - Social History Hx Tobacco Use: Yes (black & milds) Hx Alcohol Use: No Hx Substance Use: Yes (marijuana) - Immunization History Hx Tetanus Toxoid Vaccination: No Hx Influenza Vaccination: No Hx Pneumococcal Vaccination: No Review Of Systems Except As Marked, All Systems Reviewed And Found Negative. Constitutional: Negative for: Fever Cardiovascular: Positive for: Chest Pain Gastrointestinal: Positive for: Nausea, Vomiting, Other (epigastric pain) Genitourinary: Negative for: Dysuria, Hematuria Physical Exam - Physical Exam Appears: Non-toxic, Other (mild distress) Skin: Normal Color, Warm, No Rash Head: Atraumatic, Normacephalic Eye(s): bilateral: PERRL, EOMI Ear(s): Bilateral: Normal Oral Mucosa: Moist Neck: Normal, Supple Chest: Symmetrical Cardiovascular: Rhythm Regular, No Murmur Respiratory: Normal Breath Sounds, No Rales, No Rhonchi, No Wheezing Gastrointestinal/Abdominal: Bowel Sounds, Soft, Tenderness (diffuse abdominal tenderness in upper quad) Extremity: Normal ROM Extremity: Bilateral: Atraumatic Pulses: Left Radial: Normal, Right Radial: Normal Neurological/Psych: Oriented x3 Gait: Steady ED Course And Treatment - Laboratory Results Result Diagrams: 11/25/17 10:24 11/25/17 10:24 O2 Sat by Pulse Oximetry: 96 (RA) Pulse Ox Interpretation: Normal - CT Scan/US Abdome/ Pelvis Other Rad Studies (CT/US): Read By Radiologist, Radiology Report Reviewed CT/US Interpretation: FINDINGS: LOWER THORAX: Unremarkable. LIVER: Unremarkable. No gross lesion or ductal dilatation. GALLBLADDER AND BILE DUCTS : Unremarkable. PANCREAS: Unremarkable. No gross lesion or ductal dilatation. SPLEEN: Unremarkable. ADRENALS: Unremarkable. No mass. KIDNEYS AND URETERS: Unremarkable. No hydronephrosis. No solid mass. VASCULATURE: Unremarkable. No aortic aneurysm. BOWEL: Mild retained stool in the rectum. No bowel obstruction. No other abnormal bowel loops. APPENDIX: Normal appendix. PERITONEUM: Unremarkable. No free fluid. No free air. LYMPH NODES: Unremarkable. No enlarged lymph nodes. BLADDER: Unremarkable. REPRODUCTIVE : Normal prostate. BONES: No acute fracture. OTHER FINDINGS: None. IMPRESSION: No acute abnormality. Unremarkable examination. Medical Decision Making Medical Decision Making: Impression: 22 with a Hx of gastritis c/o epigastric pain radiating to the chest Plan: --CT abd/ pelvis w/ contrast --CMP --Lipase --CBC -- 1 tab PO --Lidocaine 2% 15 ml PO --Pepcid 20 mg IV --IV Fluids --Zofran Inj 8 mg IV --Maalox 30 ml Disposition - [facility] - Disposition: HOME/ ROUTINE Disposition Time: 13:15 Condition: IMPROVED Additional Instructions: JOHN DAWSON, thank you for letting us take care of you today. The emergency medical care you received today was directed at your acute symptoms. If you were prescribed any medication, please fill it and take as directed. It may take several days for your symptoms to resolve. Return to the Emergency Department if your symptoms worsen, do not improve, or if you have any other problems. Please contact your doctor or call one of the physicians/clinics you have been referred to that are listed on the Patient Visit Information form that is included in your discharge packet. Bring any paperwork you were given at discharge with you along with any medications you are taking to your follow up visit. Our treatment cannot replace ongoing medical care by a primary care provider outside of the emergency department. Thank you for allowing the [facility] team to be part of your care today. Follow up with your primary care doctor in 2-3 days for re-evaluation and further management. Instructions: Gastritis (DC), Ulcer and Gastritis Diet Forms: [employer] ([employer]) - Clinical Impression Clinical Impression: Gastritis, Vomiting - PA / INSTRUCTOR KNITTING / Resident Statement MD/DO has reviewed & agrees with the documentation as recorded. - Scribe Statement The provider has reviewed the documentation as recorded by the Scribe (Carmelina Francois) Provider Attestation: All medical record entries made by the Scribe were at my direction and personally dictated by me. I have reviewed the chart and agree that the record accurately reflects my personal performance of the history, physical exam, medical decision making, and the department course for this patient. I have also personally directed, reviewed, and agree with the discharge instructions and disposition.
[2017-11-25 13:50] VITALS: BP 146/69; PULSE 65; RESP 18; TEMP 99
[2017-11-25 18:24] VITALS: O2SAT 96
--- NOTE | 2017-11-27 12:49 | CARD ---
APPROVED REPORT Date of service: 11/25/2017 EKG Measurement Heart [id number] <Conclusion> Normal sinus rhythm with sinus arrhythmia Normal ECG
== END 2017-11-25 13:56 | disposition home or self-care (01) ==
LOC: C.ER 09:06
DX: K29.70 Gastritis, unspecified, without bleeding (principal); R11.10 Vomiting, unspecified; F17.200 Nicotine dependence, unspecified, uncomplicated
CPT/HCPCS: 74177; 80053; 83690; 85025; 96361; 96374; 96375; 99284; J2405; J7030; Q9967

== ENCOUNTER 2018-03-01 07:25 | Emergency (ER) | payer OTHER ==
[2018-03-01 07:25] VITALS: BMI 16.9
--- NOTE | 2018-03-01 08:08 | C.PDOC ---
History Of Present Illness 22-YEAR-OLD MALE COMES IN WITH RECUR EPIG PAIN X 2 DAYS. HO Gastritis and GERD SP s/p EGD and colonoscopy DR WOODS 2018. CURRENT PAIN SIM TO PRIOR, EPIG CONSTANT LOCALIZED. +VOMITING. COMPLIANT GI MEDS. DENIES OTHER ASSOC SX EXAM MOD DIST CRYING BUT CONSOLABLE ABD +EPIG TEND MOD SOFT NO RG REMAINDER NEG Time Seen by Provider: 03/01/18 07:59 Chief Complaint (Nursing): Abdominal Pain History Per: Patient History/Exam Limitations: no limitations Past Medical History Reviewed: Historical Data, Nursing Documentation, Vital Signs Vital Signs: Last Vital Signs Temp 98.2 F 03/01/18 07:45 Pulse 74 03/01/18 07:45 Resp 16 03/01/18 07:45 BP 128/82 03/01/18 07:45 Pulse Ox 99 03/01/18 07:45 - Medical History PMH: Gastritis, GERD Denies: Atrial Fibrillation, Cardia Arrhythmia, CHF, Crohn's Disease, Diverticulitis, Gall Bladder Disease, HTN, Hypercholesterolemia, Mitral Valve Prolapse, Pancreatitis, Peripheral Edema, Chronic Kidney Disease Surgical History: Endoscopy Denies: Pacemaker - [facility] Procedures EXCISION OF LEFT LARGE INTESTINE, ENDO, DIAGN (02/27/16) EXCISION OF STOMACH, ENDO, DIAGN (11/05/16) Family History: States: No Known Family Hx - Social History Hx Tobacco Use: Yes (black & milds) Hx Alcohol Use: No Hx Substance Use: No (marijuana) - Immunization History Hx Tetanus Toxoid Vaccination: No Hx Influenza Vaccination: No Hx Pneumococcal Vaccination: No Review Of Systems Constitutional: Negative for: Fever Cardiovascular: Negative for: Chest Pain Respiratory: Negative for: Shortness of Breath Gastrointestinal: Positive for: Vomiting, Abdominal Pain Physical Exam - Physical Exam Appears: Non-toxic, No Acute Distress, Other (crying but consolable) Skin: Warm, Dry, No Rash Head: Atraumatic Eye(s): bilateral: Normal Inspection Nose: Normal Oral Mucosa: Moist Lips: Normal Appearing Neck: Normal ROM Cardiovascular: Rhythm Regular, No Murmur Respiratory: Normal Breath Sounds, No Accessory Muscle Use Gastrointestinal/Abdominal: Soft, Tenderness (EPIG ), No Guarding, No Rebound Back: Normal Inspection Extremity: Normal ROM, No Deformity Neurological/Psych: Oriented x3, Normal Speech ED Course And Treatment - Laboratory Results Result Diagrams: 03/01/18 08:24 03/01/18 08:24 ECG: Interpreted By Me ECG Rhythm: Sinus Rhythm ECG Interpretation: Normal Rate From EC O2 Sat by Pulse Oximetry: 99 Pulse Ox Interpretation: Normal Progress - Re-Evaluation Re-evaluation Note: 03/01/18 09:37 IMPROVED. LABS REVIEWED - Data Reviewed Data Reviewed: Lab, EKG, Old records Disposition Counseled Patient/Family Regarding: Studies Performed, Diagnosis, Need For Followup, Rx Given - Disposition Referrals: YOUR,PMD [Other] Disposition: HOME/ ROUTINE Disposition Time: 09:39 Condition: IMPROVED Prescriptions: Sucralfate [Carafate Tab] 1 gm PO QID #12 tab Instructions: Gastritis (DC) Forms: [employer] (Tajik) - Clinical Impression Clinical Impression: Gastritis, Abdominal pain - Scribe Statement The provider has reviewed the documentation as recorded by the Scribe (Sola love) Provider Attestation: All medical record entries made by the Scribe were at my direction and personally dictated by me. I have reviewed the chart and agree that the record accurately reflects my personal performance of the history, physical exam, medical decision making, and the department course for this patient. I have also personally directed, reviewed, and agree with the discharge instructions and disposition.
[2018-03-01 08:30] LABS: BASO % 0.6 % (0.0-2.0); EOS % 0.5 % (0.0-4.0); LYMPH # 2.1 K/uL (1.0-4.3); LYMPH % 24.4 % (20.0-40.0); MEAN CELL VOLUME 87.4 fL (80.0-94.0); MEAN CORPUSCULAR HEMOGLOBIN 29.9 pg (27.0-31.0); MEAN CORPUSCULAR HGB CONC 34.2 g/dL (33.0-37.0); MONO # 0.5 K/uL (0.0-0.8); MONO % 5.9 % (0.0-10.0); NEUT % 68.6 % (50.0-75.0); NRBC % 0.1 % (0.0-2.0); RBC 5.69 Mil/uL (4.40-5.90); RED CELL DISTRIBUTION WIDTH 12.9 % (11.5-14.5); WHITE BLOOD COUNT 8.8 K/uL (4.8-10.8)
[2018-03-01 08:43] LABS: ALB/GLOB RATIO 1.5 (1.0-2.1); ALBUMIN 5.5 g/dL (3.5-5.0); ALT/SGPT 24 U/L (21-72); AST/SGOT 27 U/L (17-59); BLOOD UREA NITROGEN 14 mg/dL (9-20); CALCIUM 10.3 mg/dl (8.6-10.4); GFR NON-AFRICAN AMERICAN > 60; LIPASE 58 U/L (23-300)
[2018-03-01] MEDS ORDERED: Morphine 4 MG/ML VIAL ONE (08:43)
[2018-03-01 09:20] VITALS: BP 117/86; PULSE 78; RESP 18; TEMP 98
[2018-03-01 09:44] VITALS: O2SAT 99
--- NOTE | 2018-03-02 12:21 | CARD ---
APPROVED REPORT Date of service: 03/01/2018 EKG Measurement Heart [id number] <Conclusion> Normal sinus rhythm with sinus arrhythmia Normal ECG
== END 2018-03-01 10:04 | disposition home or self-care (01) ==
LOC: C.ER 07:25
DX: K29.70 Gastritis, unspecified, without bleeding (principal); R10.13 Epigastric pain; Z72.0 Tobacco use
CPT/HCPCS: 80053; 83690; 85025; 93005; 96374; 96375; 99284; C9113; J2270; J2405

== ENCOUNTER 2018-03-29 08:57 | Emergency (ER) | payer OTHER ==
[2018-03-29 09:00] VITALS: BMI 18.1
[2018-03-29 09:01] VITALS: RESP 18
[2018-03-29] MEDS ORDERED: Sodium Chloride 0.9% 1,000 ML IV ONE (09:32)
[2018-03-29] MEDS ORDERED: Belladonna-Phenobarbital PO STA (09:32)
[2018-03-29] MEDS ORDERED: Aluminum Hydroxide/Magnesium Hydroxide Susp (30 mL) PO STA (09:32)
[2018-03-29] MEDS ORDERED: Belladonna-Phenobarbital ONE (10:03)
[2018-03-29] MEDS ORDERED: Aluminum Hydroxide/Magnesium Hydroxide Susp (30 mL) ONE (10:03)
[2018-03-29] MEDS ORDERED: Sodium Chloride 0.9% 1,000 ML ONE (10:04)
--- NOTE | 2018-03-29 10:32 | C.PDOC ---
History Of Present Illness 22 y/o male with history of gastritis presents to ED with c/o epigastric abdominal pain associated with multiple episodes of vomiting and nausea. Patient reports questionable compliance with protonix. Patient denies fever, chills, di arrhea, dysuria or any other complaints at this time. Time Seen by Provider: 03/29/18 09:15 Chief Complaint (Nursing): Abdominal Pain History Per: Patient History/Exam Limitations: no limitations Onset/Duration Of Symptoms: Days Current Symptoms Are (Timing): Still Present Past Medical History Reviewed: Historical Data, Nursing Documentation, Vital Signs Vital Signs: Last Vital Signs Temp 98.3 F 03/29/18 09:01 Pulse 82 03/29/18 09:01 Resp 18 03/29/18 09:01 BP 134/87 03/29/18 09:01 Pulse Ox 100 03/29/18 09:01 - Medical History PMH: Gastritis, GERD Surgical History: Endoscopy - [facility] Procedures EXCISION OF LEFT LARGE INTESTINE, ENDO, DIAGN (02/27/16) EXCISION OF STOMACH, ENDO, DIAGN (11/05/16) Family History: States: No Known Family Hx - Social History Hx Tobacco Use: Yes (black & milds) Hx Alcohol Use: No Hx Substance Use: No (marijuana) - Immunization History Hx Tetanus Toxoid Vaccination: No Hx Influenza Vaccination: No Hx Pneumococcal Vaccination: No Review Of Systems Constitutional: Negative for: Fever, Chills Gastrointestinal: Positive for: Nausea, Vomiting, Abdominal Pain. Negative for: Diarrhea, Constipation Genitourinary: Negative for: Dysuria Musculoskeletal: Negative for: Back Pain Skin: Negative for: Rash Physical Exam - Physical Exam Appears: Non-toxic, No Acute Distress Skin: Warm, Dry, No Rash Head: Atraumatic, Normacephalic Eye(s): bilateral: Normal Inspection Oral Mucosa: Moist Neck: Normal ROM, Supple Cardiovascular: Rhythm Regular Respiratory: Normal Breath Sounds, No Rales, No Rhonchi, No Wheezing Gastrointestinal/Abdominal: Soft, Tenderness (Epigastric), No Guarding, No Re bound Back: No CVA Tenderness Neurological/Psych: Oriented x3, Normal Speech, Normal Cognition ED Course And Treatment - Laboratory Results Result Diagrams: 03/29/18 10:44 03/29/18 10:44 O2 Sat by Pulse Oximetry: 100 (RA) Pulse Ox Interpretation: Normal Progress Note: On re evaluation patient feels better, agrees with plan of discharge and follow up with PMD in 2 days. Disposition - Disposition Referrals: [facility] Elham Vidal, [Non-Staff] - Disposition: HOME/ ROUTINE Disposition Time: 11:15 Condition: GOOD Additional Instructions: JOHN DAWSON, thank you for letting us take care of you today. The emergency medical care you received today was directed at your acute symptoms. If you were prescribed any medication, please fill it and take as directed. It may take several days for your symptoms to resolve. Return to the Emergency Department if your symptoms worsen, do not improve, or if you have any other problems. Please contact your doctor or call one of the physicians/clinics you have been referred to that are listed on the Patient Visit Information form that is included in your discharge packet. Bring any paperwork you were given at discharge with you along with any medications you are taking to your follow up visit. Our treatment cannot replace ongoing medical care by a primary care provider outside of the emergency department. Thank you for allowing the [facility] team to be part of your care today. Follow up with your primary care doctor this week for re-evaluation and further management. Prescriptions: Famotidine [Pepcid] 20 mg PO BID #14 tab Omeprazole Magnesium [Prilosec Otc] 20 mg PO DAILY #14 tablet. Instructions: Gastritis (DC) Forms: [employer] (Turkish), Work Excuse - Clinical Impression Clinical Impression: Gastritis - Scribe Statement The provider has reviewed the documentation as recorded by the Ariel Marquez All medical record entries made by the Scribe were at my direction and personally dictated by me. I have reviewed the chart and agree that the record accurately reflects my personal performance of the history, physical exam, medical decision making, and the department course for this patient. I have also personally directed, reviewed, and agree with the discharge instructions and disposition.
[2018-03-29 10:49] LABS: BASO # 0.1 K/uL (0.0-0.2); BASO % 0.5 % (0.0-2.0); EOS % 0.2 % (0.0-4.0); HEMOGLOBIN 16.2 g/dL (12.0-18.0); LYMPH # 1.4 K/uL (1.0-4.3); LYMPH % 13.7 % (20.0-40.0); MEAN CELL VOLUME 89.7 fL (80.0-94.0); MEAN CORPUSCULAR HEMOGLOBIN 30.3 pg (27.0-31.0); MEAN CORPUSCULAR HGB CONC 33.8 g/dL (33.0-37.0); MEAN PLATELET VOLUME 7.1 fL (7.2-11.7); MONO # 0.5 K/uL (0.0-0.8); MONO % 4.6 % (0.0-10.0); NEUT # 8.4 K/uL (1.8-7.0); NRBC % 0.1 % (0.0-2.0); RBC 5.34 Mil/uL (4.40-5.90); RED CELL DISTRIBUTION WIDTH 13.3 % (11.5-14.5); WHITE BLOOD COUNT 10.4 K/uL (4.8-10.8)
[2018-03-29 11:18] LABS: ALB/GLOB RATIO 1.6 (1.0-2.1); ALBUMIN 5.2 g/dL (3.5-5.0); ALT/SGPT 29 U/L (21-72); AST/SGOT 24 U/L (17-59); BLOOD UREA NITROGEN 11 mg/dL (9-20); CALCIUM 10.1 mg/dl (8.6-10.4); GFR NON-AFRICAN AMERICAN > 60; LIPASE 68 U/L (23-300)
[2018-03-29 11:41] VITALS: BP 117/63; PULSE 70; TEMP 98
[2018-03-29 18:25] VITALS: O2SAT 100
== END 2018-03-29 12:02 | disposition home or self-care (01) ==
LOC: C.ER 08:57
DX: K29.70 Gastritis, unspecified, without bleeding (principal)
CPT/HCPCS: 80053; 83690; 85025; 96361; 96374; 96375; 99285; J2405; J7030

== ENCOUNTER 2018-04-22 10:47 | Emergency (ER) | payer OTHER ==
[2018-04-22 10:47] VITALS: BMI 18.1
[2018-04-22 11:18] VITALS: O2SAT 100
--- NOTE | 2018-04-22 11:52 | C.PDOC ---
History Of Present Illness 23 y/o male with a PMHx of gastritis and GERD, presents with complaints of epigastric pain, nausea, and vomiting earlier this morning. He reports current symptoms are similar to prior GERD symptoms. Patient had 10 episodes of non-jerrica ious non-bloody vomiting. Also reports he had brief chest pain after vomiting. Otherwise he denies any fevers, chills, night sweats, rashes, falls, urinary complaints, constipation, diarrhea, dark or bloody stools, or any other abdominal pain. Time Seen by Provider: 04/22/18 11:52 Chief Complaint (Nursing): Abdominal Pain History Per: Patient History/Exam Limitations: no limitations Onset/Duration Of Symptoms: Hrs Current Symptoms Are (Timing): Still Present Location Of Pain/Discomfort: Epigastric Associated Symptoms: Nausea, Vomiting Past Medical History Reviewed: Historical Data, Nursing Documentation, Vital Signs Vital Signs: Last Vital Signs Temp 97.6 F 04/22/18 11:15 Pulse 74 04/22/18 11:15 Resp 20 04/22/18 11:15 BP 132/94 H 04/22/18 11:15 Pulse Ox 100 04/22/18 11:15 - Medical History PMH: Gastritis, GERD Denies: Atrial Fibrillation, Cardia Arrhythmia, CHF, Crohn's Disease, Diverticulitis, Gall Bladder Disease, HTN, Hypercholesterolemia, Mitral Valve Prolapse, Pancreatitis, Peripheral Edema, Chronic Kidney Disease Surgical History: Endoscopy Denies: Pacemaker - [facility] Procedures EXCISION OF LEFT LARGE INTESTINE, ENDO, DIAGN (02/27/16) EXCISION OF STOMACH, ENDO, DIAGN (11/05/16) Family History: States: Unknown Family Hx - Social History Hx Tobacco Use: Yes (black & milds) Hx Alcohol Use: No Hx Substance Use: No - Immunization History Hx Tetanus Toxoid Vaccination: No Hx Influenza Vaccination: No Hx Pneumococcal Vaccination: No Review Of Systems Constitutional: Negative for: Fever, Chills, Sweats Eyes: Negative for: Vision Change ENT: Negative for: Ear Discharge Cardiovascular: Negative for: Chest Pain (currently), Palpitations, Orthopnea, Edema Respiratory: Negative for: Shortness of Breath, SOB with Excertion Gastrointestinal: Positive for: Nausea, Vomiting, Abdominal Pain (epigastric). Negative for: Diarrhea, Constipation, Melena, Hematochezia Genitourinary: Negative for: Dysuria, Frequency, Incontinence, Hematuria Musculoskeletal: Negative for: Neck Pain, Shoulder Pain, Back Pain Skin: Negative for: Rash Neurological: Negative for: Weakness, Numbness, Incoordination Physical Exam - Physical Exam Appears: Non-toxic, No Acute Distress Skin: Warm, Dry Head: Normacephalic Eye(s): bilateral: Normal Inspection, PERRL, EOMI Nose: Normal Oral Mucosa: Moist Tongue: Normal Appearing Lips: Normal Appearing Teeth: Normal Dentition Neck: Trachea Midline, Supple, Other (No meningeal signs- negative kernig's and brudzinskis) Chest: Symmetrical Cardiovascular: Rhythm Regular, No Friction Rub Respiratory: No Rales, No Rhonchi, No Wheezing Gastrointestinal/Abdominal: Soft, Tenderness (epigastric), No Organomegaly, No Mass, No Distention Back: Normal Inspection, No CVA Tenderness Extremity: Bilateral: Atraumatic, Normal Color And Temperature Pulses: Left Dorsalis Pedis: Normal, Right Dorsalis Pedis: Normal Neurological/Psych: Oriented x3, Normal Speech, Normal Cognition Gait: Steady Extremity: Right: No Drift, Left: No Drift ED Course And Treatment - Laboratory Results Result Diagrams: 04/22/18 12:33 04/22/18 12:33 O2 Sat by Pulse Oximetry: 100 (RA) Pulse Ox Interpretation: Normal Medical Decision Making Medical Decision [age] old male w/ hx of gastritis p/w gastritis like symptoms. No RLQ tenderness. Likely gastritis. No CVAT. No chest pain or sob. No fever, chills or night sweats. No complaints. No rashes. Likely gastritis. Plan: --EKG --Blood work --Chest x-ray --20 mg IV Pepcid --4 mg IV Zofran --IV fluids EK bpm, NSR, no STEMI 1431 pain improved, pt in NAD, tolerating clears abdomen non-ttp, no peritoneal signs, clear for d/c home with f/u and return indications. pt agreeable to plan. Disposition - Disposition Referrals: Juancarlos Nettles MD [Staff Provider] - [facility] [Outside] [facility] [Outside] [facility] [Outside] Disposition: HOME/ ROUTINE Disposition Time: 14:31 Condition: GOOD Additional Instructions: JOHN DAWSON, thank you for letting us take care of you today. Your provider was James Lee and you were treated for STOMACH PAIN/CHEST PAIN. The emergency medical care you received today was directed at your acute symptoms. If you were prescribed any medication, please fill it and take as directed. It may take several days for your symptoms to resolve. Return to the Emergency Department if your symptoms worsen, do not improve, or if you have any other problems. Please contact your doctor or call one of the physicians/clinics you have been referred to that are listed on the Patient Visit Information form that is included in your discharge packet. Bring any paperwork you were given at discharge with you along with any medications you are taking to your follow up visit. Our treatment cannot replace ongoing medical care by a primary care provider outside of the emergency department. Thank you for allowing the [facility] team to be part of your care today. If you had an X-Ray or CT scan: A Radiologist will review the ED reading if any change in treatment is needed we will contact you. If you had a blood, urine, or wound culture: It will take several days for the results, if any change in treatment is needed we will contact you. If you had an STI test: It will take 48 hours for the results. Please call after 1 week if you have not heard back. Prescriptions: Famotidine [Pepcid] 20 mg PO BID #14 tab Instructions: Gastritis (DC) Forms: [facility] (Persian) - Clinical Impression Clinical Impression: Gastritis - Scribe Statement The provider has reviewed the documentation as recorded by the Ariel Lux Provider Attestation: All medical record entries made by the Milliibmike were at my direction and personally dictated by me. I have reviewed the chart and agree that the record accurately reflects my personal performance of the history, physical exam, medical decision making, and the department course for this patient. I have also personally directed, reviewed, and agree with the discharge instructions and disposition.
[2018-04-22] MEDS ORDERED: Sodium Chloride 0.9% 1,000 ML IV ONE (12:22)
[2018-04-22 12:39] LABS: BASO # 0.1 K/uL (0.0-0.2); BASO % 0.6 % (0.0-2.0); EOS % 0.4 % (0.0-4.0); HEMOGLOBIN 16.3 g/dL (12.0-18.0); LYMPH # 1.2 K/uL (1.0-4.3); MEAN CELL VOLUME 88.6 fL (80.0-94.0); MEAN CORPUSCULAR HEMOGLOBIN 30.3 pg (27.0-31.0); MEAN CORPUSCULAR HGB CONC 34.2 g/dL (33.0-37.0); MEAN PLATELET VOLUME 6.9 fL (7.2-11.7); MONO # 0.5 K/uL (0.0-0.8); MONO % 4.3 % (0.0-10.0); NEUT # 9.2 K/uL (1.8-7.0); NEUT % 83.7 % (50.0-75.0); RBC 5.36 Mil/uL (4.40-5.90)
[2018-04-22] MEDS ORDERED: Sodium Chloride 0.9% 1,000 ML ONE (12:39)
[2018-04-22 13:01] LABS: ALB/GLOB RATIO 1.5 (1.0-2.1); ALBUMIN 5.2 g/dL (3.5-5.0); ALT/SGPT 19 U/L (21-72); AST/SGOT 26 U/L (17-59); BLOOD UREA NITROGEN 9 mg/dL (9-20); CALCIUM 10.3 mg/dl (8.6-10.4); GFR NON-AFRICAN AMERICAN > 60; LIPASE 68 U/L (23-300)
--- NOTE | 2018-04-22 13:28 | RAD ---
Date of service: 04/22/2018 HISTORY: Chest pain COMPARISON: 07/01/2017. TECHNIQUE: Chest PA and lateral FINDINGS: LINES AND TUBES: None. LUNG AND PLEURA: The lungs are well inflated and clear. No pleural effusion or pneumothorax. HEART AND MEDIASTINUM: The heart is not enlarged. No aortic atherosclerotic calcification present. The hilar and mediastinal contours are within normal limits. SKELETAL STRUCTURES: The bony structures are within normal limits for the patient's age. VISUALIZED UPPER ABDOMEN: Normal. OTHER FINDINGS: None. IMPRESSION: No active pulmonary disease.
[2018-04-22] MEDS ORDERED: Alum-Mag Hydrox-Simethicone Susp (30 mL) PO STA (13:36)
[2018-04-22] MEDS ORDERED: Alum-Mag Hydrox-Simethicone Susp (30 mL) ONE (13:53)
[2018-04-22 14:57] VITALS: BP 129/89; PULSE 75; RESP 18; TEMP 97.5
--- NOTE | 2018-04-25 13:39 | CARD ---
APPROVED REPORT Date of service: 04/22/2018 EKG Measurement Heart [id number] <Conclusion> Normal sinus rhythm with sinus arrhythmia Normal ECG
== END 2018-04-22 14:55 | disposition home or self-care (01) ==
LOC: C.ER 10:47
DX: K29.70 Gastritis, unspecified, without bleeding (principal); F17.290 Nicotine dependence, other tobacco product, uncomplicated
CPT/HCPCS: 71046; 80053; 83690; 85025; 93005; 96374; 96375; 99284; J1885; J2405; J7030